=== PATIENT | female | born 1945 | race Two or more races ===

== ENCOUNTER 2016-12-25 19:38 | Inpatient (IN) | payer OTHER ==
--- NOTE | 2016-12-25 21:10 | PDOC ---
History of Present Illness - General Chief Complaint: Constipation Stated Complaint: DIZZINESS Time Seen by Provider: 12/25/16 20:27 History Source: Patient, Family, Group Leader [employer] Used Exam Limitations: Language Barrier - History of Present Illness Initial Comments: 12/25/16 21:05 71yo Female patient w/ significant PmHx: HLD, HTN, CAD, Colon CA, Constipation, Palpitations presents to ED c/o dizziness, weakness, nausea, and " some chest pains." Patient states symptoms began over the past few days getting worse. She also c/o constipation but last BM: today and normal. Patient taking Pradaxa. She denies vomiting, diarrhea, rash, fever, back pain, abd pain, diff breathing or any other complaints at this time. PCP- Dr. Polanco. Presenting Symptoms: Chest Pain, Dizziness, Nausea Timing/Duration: reports: getting worse Severity/Quality: reports: mild. denies: moderate, severe, aching, burning, dull, ingestion, pressure, sharp, stabbing, tearing, tightness, other Location: reports: central. denies: substernal, epigastric, shoulder, back, abdomen, other Chest Pain Radiation: reports: shoulders Activities at Onset: reports: no specific activity. denies: none, exertion, emotional upset, rest, sleep, eating, working, sexual intercourse, other Past History - Travel Traveled outside of the country in the last 30 days: No Close contact w/someone who was outside of country & ill: No - Past Medical History Allergies/Adverse Reactions: Allergies Allergy/AdvReac Type Severity Reaction Status Date / Time No Known Allergies Allergy Verified 12/25/16 20:00 Home Medications: Ambulatory Orders Amlodipine Besylate [Norvasc -] 10 mg PO DAILY 12/25/16 Atenolol [Tenormin -] 25 mg PO DAILY 12/25/16 Atorvastatin Ca [Lipitor] 20 mg PO HS 12/25/16 Bisacodyl [Gentle Laxative] 5 mg PO PRN 12/25/16 Cholecalciferol (Vitamin D3) [Vitamin D3 -] 1,000 unit PO DAILY 12/25/16 Dabigatran Etexilate Mesylate [Pradaxa -] 75 mg PO BID 12/25/16 Lisinopril [Zestril] 40 mg PO DAILY 12/25/16 Omeprazole 20 mg PO DAILY 12/25/16 Tramadol HCl 50 mg PO PRN PRN 12/25/16 Cancer: Yes (Colon CA) Cardiac Disorders: Yes HTN: Yes Other medical history: Lumbar Stenosis - Surgical History Abdominal Surgery: Yes (Colon CA removal 2014) - Psycho/Social/Smoking Cessation Hx Anxiety: No Suicidal Ideation: No Smoking Status: No Smoking History: Never smoked Have you smoked in the past 12 months: No Number of Cigarettes Smoked Daily: 0 Information on smoking cessation initiated: No Hx Alcohol Use: No Drug/Substance Use Hx: No Substance Use Type: None Cardiac Specific PMH - Complaint Specific PMHX Abdominal Aortic Aneurysm: No Angina: No Cardiac Arrhythmia: No Cardiac Stent: No GERD: No Myocardial Infarction: No Pacemaker: No Pulmonary Embolus: No Valvular Heart Disease: No Peripheral Vascular Disease: No Review of Systems - Review of Systems Able to Perform ROS?: Yes Is the patient limited Hungarian proficient: No Constitutional: Yes: Weakness. No: Chills, Fever Cardiac (ROS): Yes: Chest Pain, Palpitations ABD/GI: Yes: Nausea : No: Hematuria Musculoskeletal: No: Back Pain Integumentary: No: Rash Neurological: Yes: Dizziness. No: Seizure All Other Systems: Reviewed and Negative *Physical Exam - Vital Signs Last Vital Signs Temp Pulse Resp BP Pulse Ox 98.4 F 78 18 116/67 98 12/26/16 00:56 12/25/16 19:53 12/25/16 19:53 12/25/16 19:53 12/25/16 19:53 - Physical Exam General Appearance: Yes: Nourished, Appropriately Dressed. No: Apparent Distress, Mild Distress, Moderate Distress, Severe Distress Neck: positive: Trachea midline, Supple. negative: Stridor, Lymphadenopathy (R) , Lymphadenopathy (L) Respiratory/Chest: positive: Lungs Clear, Normal Breath Sounds. negative: Chest Tender, Respiratory Distress, Accessory Muscle Use, Labored Respiration, Rapid RR, Rales, Rhonchi, Stridor, Wheezing Cardiovascular: positive: Regular Rhythm, Regular Rate. negative: Bradycardia, Tachycardia Gastrointestinal/Abdominal: positive: Soft, Increased Bowel Sounds. negative: Distended, Guarding, Rebound, Tenderness Musculoskeletal: positive: Normal Inspection. negative: CVA Tenderness, Vertebral Tenderness Extremity: positive: Normal Capillary Refill, Normal Inspection, Normal Range of Motion. 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, Fully Oriented, Alert, Normal Mood/ Affect, Normal Response, Motor Strength 10/26 ED Treatment Course - LABORATORY CBC & Chemistry Diagram: 12/25/16 21:00 12/25/16 21:00 - ADDITIONAL ORDERS Additional order review: Laboratory Results 12/25/16 12/25/16 12/25/16 23:10 23:05 22:56 INR PTT (Actin FS) Sodium Potassium Chloride Carbon Dioxide Anion Gap BUN Creatinine Creat Clearance w eGFR Random Glucose Calcium Total Bilirubin AST ALT Alkaline Phosphatase Creatine Kinase Troponin I B-Natriuretic Peptide Total Protein Albumin Total Amylase Lipase Urine Color Urine Appearance Urine pH Urine Protein Urine Glucose (UA) Urine Ketones Urine Blood Urine Nitrite Urine Bilirubin Urine Urobilinogen Ur Leukocyte Esterase Urine RBC Urine WBC Ur Epithelial Cells Stool Occult Blood Positive Blood Type O POSITIVE O POSITIVE Antibody Screen Negative Crossmatch See Detail 12/25/16 12/25/16 12/25/16 21:00 21:00 21:00 INR 0.96 PTT (Actin FS) 26.0 L Sodium 141 Potassium 4.5 Chloride 107 Carbon Dioxide 27 Anion Gap 7 L BUN 15 Creatinine 1.0 Creat Clearance w eGFR 54.50 Random Glucose 143 H Calcium 8.4 L Total Bilirubin 0.2 D AST 27 D ALT 32 D Alkaline Phosphatase 116 Creatine Kinase 57 Troponin I < 0.02 B-Natriuretic Peptide 276.14 H Total Protein 6.8 Albumin 3.4 Total Amylase 45 Lipase 167 Urine Color Colorless Urine Appearance Clear Urine pH 7.0 Urine Protein Negative Urine Glucose (UA) Negative Urine Ketones Negative Urine Blood 1+ H Urine Nitrite Negative Urine Bilirubin Negative Urine Urobilinogen Negative Ur Leukocyte Esterase Negative Urine RBC 3 Urine WBC 1 Ur Epithelial Cells Rare Stool Occult Blood Blood Type Antibody Screen Crossmatch 12/25/16 21:00 RBC 2.00 L D MCV 89.1 D MCHC 32.7 RDW 15.2 D MPV 7.6 Neutrophils % 65.5 D Lymphocytes % 23.9 D Monocytes % 9.4 Eosinophils % 0.8 Basophils % 0.4 - RADIOLOGY Radiology Studies Ordered: Category Date Time Status CHEST X-RAY PORTABLE* [RAD] Stat Radiology 12/25/16 20:47 Taken *DC/Admit/Observation/Transfer Diagnosis at time of Disposition: Anemia Qualifiers: Anemia type: unspecified type Qualified Code(s): D64.9 - Anemia, unspecified Gastrointestinal hemorrhage Qualifiers: GI bleed type/associated pathology: unspecified gastrointestinal hemorrhage type Qualified Code(s): K92.2 - Gastrointestinal hemorrhage, unspecified - Discharge Dispostion Condition at time of disposition: Fair Admit: Yes
[2016-12-25 21:13] LABS: BASOPHIL 0.4 % (0-2.0); EOSINOPHIL 0.8 % (0-4.5); MCH 29.1 pg (25.7-33.7); MCHC 32.7 g/dl (32.0-36.0); MEAN CELL VOLUME 89.1 fl (80-96); MEAN PLT VOLUME 7.6 fl (7.5-11.1); NEUTROPHILS 65.5 % (42.8-82.8); PLATELET COUNT 267 K/MM3 (134-434); RDW 15.2 % (11.6-15.6); WHITE BLOOD COUNT 12.1 K/mm3 (4.0-10.0)
[2016-12-25 21:26] LABS: INR 0.96 (0.82-1.09); PROTHROMBIN TIME (PATIENT) 10.6 SEC (9.98-11.88)
[2016-12-25 21:37] LABS: ALBUMIN 3.4 g/dl (3.4-5.0); AMYLASE 45 U/L (25-115); ANION GAP 7 (8-16); CALCIUM 8.4 mg/dL (8.5-10.1); CO2 27 mmol/L (21-32); GLUCOSE,RANDOM 143 mg/dL (74-106); SGOT/AST 27 U/L (15-37); SGPT/ALT 32 U/L (12-78)
[2016-12-25 21:41] LABS: ALK PHOS 116 U/L (45-117); BILIRUBIN,TOTAL 0.2 mg/dL (0.2-1.0); TOT PROT 6.8 g/dl (6.4-8.2); TROPONIN I < 0.02 ng/ml (0.00-0.05)
--- NOTE | 2016-12-25 23:10 | PDOC ---
*Physical Exam - Vital Signs Last Vital Signs Temp Pulse Resp BP Pulse Ox 97.9 F 78 18 116/67 98 12/25/16 19:53 12/25/16 19:53 12/25/16 19:53 12/25/16 19:53 12/25/16 19:53 ED Treatment Course - LABORATORY CBC & Chemistry Diagram: 12/26/16 15:50 12/26/16 15:50 - ADDITIONAL ORDERS Additional order review: Laboratory Results 12/25/16 12/25/16 21:00 21:00 INR 0.96 PTT (Actin FS) 26.0 L Sodium 141 Potassium 4.5 Chloride 107 Carbon Dioxide 27 Anion Gap 7 L BUN 15 Creatinine 1.0 Creat Clearance w eGFR 54.50 Random Glucose 143 H Calcium 8.4 L Total Bilirubin 0.2 D AST 27 D ALT 32 D Alkaline Phosphatase 116 Creatine Kinase 57 Troponin I < 0.02 B-Natriuretic Peptide 276.14 H Total Protein 6.8 Albumin 3.4 Total Amylase 45 Lipase 167 12/25/16 21:00 RBC 2.00 L D MCV 89.1 D MCHC 32.7 RDW 15.2 D MPV 7.6 Neutrophils % 65.5 D Lymphocytes % 23.9 D Monocytes % 9.4 Eosinophils % 0.8 Basophils % 0.4 Medical Decision Making - Medical Decision Making 12/25/16 23:10 agree with care from WANDER Casillas *DC/Admit/Observation/Transfer Diagnosis at time of Disposition: Anemia, GI bleed - Discharge Dispostion Condition at time of disposition: Fair
[2016-12-25 23:39] LABS: URINE APPEARANCE CLEAR; URINE BILIRUBIN NEGATIVE (NEGATIVE); URINE COLOR COLORLESS; URINE GLUCOSE (UA) NEGATIVE (NEGATIVE); URINE KETONE NEGATIVE (NEGATIVE); URINE LEUK ESTERASE NEGATIVE (NEGATIVE); URINE NITRITE NEGATIVE (NEGATIVE); URINE PROTEIN NEGATIVE (NEGATIVE); URINE UROBILINOGEN NEGATIVE E.U./dl (0.2-1.0)
[2016-12-25 23:40] LABS: URINE BLOOD 1+ (NEGATIVE)
[2016-12-25 23:44] LABS: URINE RBC 3 /hpf (0-3); URINE WBC 1 /hpf (3-5)
--- NOTE | 2016-12-26 01:05 | HP ---
CHIEF COMPLAINT: dizziness, weakness, nausea PCP: Meghan ChurchOfficial HISTORY OF PRESENT ILLNESS: This is a 71 year old female with a past medical history of HLD, HTN, CAD, colon CA, constipation who presented to the ED wit hdizziness, weakness, nausea , abdominal and chest discomfort since Saturday. Pt reports her stool has been soft and dark since . Pt states her abdominal pain occurs when she eats and radiates up into her chest and is relieved by belching. Pt also reports increased frequency of urination but no dysuria. Pt denies any vomiting, or overt hematochezia. ER course was notable for: (1) Hgb 5.8 (2) WBC 12.1 (3) stool + occ blood Recent Travel: pt denies PAST MEDICAL HISTORY: Hypertension Hyperlipidemia CAD cardiomegaly "hole in her heart" colon CA chronic constipation lumbar stenosis PAST SURGICAL HISTORY: colon resection 02/2015 @ [facility] Social History: Smoking: pt denies Alcohol: pt denies Drugs: pt denies Family History: mother age 23, drowned father age 79, heart problems Allergies No Known Allergies Allergy (Verified 12/25/16 20:00) HOME MEDICATIONS: 3 Medication Instructions Recorded Amlodipine Besylate [Norvasc -] 10 mg PO DAILY 12/25/16 Atenolol [Tenormin -] 25 mg PO DAILY 12/25/16 Atorvastatin Ca [Lipitor] 20 mg PO HS 12/25/16 Bisacodyl [Gentle Laxative] 5 mg PO PRN 12/25/16 Cholecalciferol (Vitamin D3) 1,000 unit PO DAILY 12/25/16 [Vitamin D3 -] Dabigatran Etexilate Mesylate 75 mg PO BID 12/25/16 [Pradaxa -] Lisinopril [Zestril] 40 mg PO DAILY 12/25/16 Omeprazole 20 mg PO DAILY 12/25/16 Tramadol HCl 50 mg PO PRN PRN 12/25/16 REVIEW OF SYSTEMS CONSTITUTIONAL: Present: generalized weakness, malaise Absent: fever, chills, diaphoresis, loss of appetite, weight change HEENT: Absent: rhinorrhea, nasal congestion, throat pain, throat swelling, difficulty swallowing, mouth swelling, ear pain, eye pain, visual changes CARDIOVASCULAR: Present: chest pain Absent: syncope, palpitations, irregular heart rate, lightheadedness, peripheral edema RESPIRATORY: Absent: cough, shortness of breath, dyspnea with exertion, orthopnea, wheezing, stridor, hemoptysis GASTROINTESTINAL: Present: abdominal pain, nausea Absent: abdominal distension, vomiting, diarrhea, constipation, melena, hematochezia GENITOURINARY: Absent: dysuria, frequency, urgency, hesitancy, hematuria, flank pain, genital pain MUSCULOSKELETAL: Absent: myalgia, arthralgia, joint swelling, back pain, neck pain SKIN: Absent: rash, itching, pallor HEMATOLOGIC/IMMUNOLOGIC: Absent: easy bleeding, easy bruising, lymphadenopathy, frequent infections ENDOCRINE: Absent: unexplained weight gain, unexplained weight loss, heat intolerance, cold intolerance NEUROLOGIC: Absent: headache, focal weakness or paresthesias, dizziness, unsteady gait, seizure, mental status changes, bladder or bowel incontinence PSYCHIATRIC: Absent: anxiety, depression, suicidal or homicidal ideation, hallucinations. PHYSICAL EXAMINATION Vital Signs - 24 hr 3 12/25/16 12/26/16 19:53 00:56 Temperature 97.9 F 98.4 F Pulse Rate 78 Respiratory 18 Rate Blood Pressure 116/67 O2 Sat by Pulse 98 Oximetry (%) GENERAL: Awake, alert, and fully oriented, in no acute distress. HEAD: Normal with no signs of trauma. EYES: Pupils equal, round and reactive to light, extraocular movements intact, sclera anicteric, conjunctiva pale. No lid lag. EARS, NOSE, THROAT: Ears normal, nares patent, oropharynx clear without exudates. Moist mucous membranes. NECK: Normal range of motion, supple without lymphadenopathy, JVD, or masses. LUNGS: Breath sounds equal, clear to auscultation bilaterally. No wheezes, and no crackles. No accessory muscle use. HEART: Regular rate and rhythm, normal S1 and S2 without rub or gallop. 2/6 murmur 2nd ICS LSB ABDOMEN: Soft, nontender, not distended, normoactive bowel sounds, no guarding, no rebound, no masses. No hepatomegaly or splenomegaly. MUSCULOSKELETAL: Normal range of motion at all joints. No bony deformities or tenderness. No CVA tenderness. UPPER EXTREMITIES: 2+ pulses, warm, well-perfused. No cyanosis. No clubbing. No peripheral edema. LOWER EXTREMITIES: 2+ pulses, warm, well-perfused. No calf tenderness. No peripheral edema. NEUROLOGICAL: Cranial nerves II-XII intact. Normal speech. Normal gait. PSYCHIATRIC: Cooperative. Good eye contact. Appropriate mood and affect. SKIN: Warm, dry, normal turgor, no rashes or lesions noted, normal capillary refill. Laboratory Results - last 24 hr 3 12/25/16 12/25/16 12/25/16 21:00 21:00 21:00 WBC RBC Hgb Hct MCV MCHC RDW Plt Count MPV Neutrophils % Lymphocytes % Monocytes % Eosinophils % Basophils % INR 0.96 PTT (Actin FS) 26.0 L Sodium 141 Potassium 4.5 Chloride 107 Carbon Dioxide 27 Anion Gap 7 L BUN 15 Creatinine 1.0 Creat Clearance w eGFR 54.50 Random Glucose 143 H Calcium 8.4 L Total Bilirubin 0.2 D AST 27 D ALT 32 D Alkaline Phosphatase 116 Creatine Kinase 57 Troponin I < 0.02 B-Natriuretic Peptide 276.14 H Total Protein 6.8 Albumin 3.4 Total Amylase 45 Lipase 167 Urine Color Colorless Urine Appearance Clear Urine pH 7.0 Urine Protein Negative Urine Glucose (UA) Negative Urine Ketones Negative Urine Blood 1+ H Urine Nitrite Negative Urine Bilirubin Negative Urine Urobilinogen Negative Ur Leukocyte Esterase Negative Urine RBC 3 Urine WBC 1 Ur Epithelial Cells Rare Stool Occult Blood Blood Type Antibody Screen Crossmatch 3 12/25/16 12/25/16 12/25/16 21:00 22:56 23:05 WBC 12.1 H RBC 2.00 L D Hgb 5.8 L* D Hct 17.8 L D MCV 89.1 D MCHC 32.7 RDW 15.2 D Plt Count 267 D MPV 7.6 Neutrophils % 65.5 D Lymphocytes % 23.9 D Monocytes % 9.4 Eosinophils % 0.8 Basophils % 0.4 INR PTT (Actin FS) Sodium Potassium Chloride Carbon Dioxide Anion Gap BUN Creatinine Creat Clearance w eGFR Random Glucose Calcium Total Bilirubin AST ALT Alkaline Phosphatase Creatine Kinase Troponin I B-Natriuretic Peptide Total Protein Albumin Total Amylase Lipase Urine Color Urine Appearance Urine pH Urine Protein Urine Glucose (UA) Urine Ketones Urine Blood Urine Nitrite Urine Bilirubin Urine Urobilinogen Ur Leukocyte Esterase Urine RBC Urine WBC Ur Epithelial Cells Stool Occult Blood Positive Blood Type O POSITIVE Antibody Screen Negative Crossmatch See Detail CXR: No obvious infiltrates or effusions, + cardiomegaly; final read pending. ECG: NSR, rate 70, QTC 473, T wave inversions v3-v5, flattening, lead 3, V2, V6 ASSESSMENT/PLAN: 71yF with PMH HTN, HLD, CAD, cardiomegaly, colon CA, lumbar stenosis presented to the ED with dizziness, weakness, nause and chest and abdominal pain since Saturday. Anemia secondary to GI bleed - 2u PRBC ordered - GI consult ordered - follow H/H - NPO except meds for possible EGD - protonix 40mg IV BID chest pain - atypical - unlikely to be cardiac but will trend troponins given anemia HTN - will hold home medications for now given GI bleed, risk of hypotension, restart if bp elevated Coronary disease/cardiomegaly/HLD - hold home pradaxa for now-unclear specific indication for same - cont lipitor Chronic constipation - hold bisacodyl for now PPX DVT - chemoprophylaxis deferred due to anemia and + stool guaiac GI - on protonix IV FEN - defer IVF- will be receiving volume with PRBC - Repeat BMP in am - NPO for now Dispo: Pt currently requires inpatient monitoring. Visit type - Emergency Visit Emergency Visit: Yes ED Registration Date: 12/25/16 Care time: The patient presented to the Emergency Department on the above date and was hospitalized for further evaluation of their emergent condition. - New Patient This patient is new to me today: Yes Date on this admission: 12/26/16 - Critical Care Critical Care patient: Yes Total Critical Care Time (in minutes): 45 Critical Care Statement: The care of this patient involved high complexity decision making to prevent further life threatening deterioration of the patient 's condition and/or to evalute & treat vital organ system(s) failure or risk of failure.
--- NOTE | 2016-12-26 02:14 | CONSULT ---
Consult Consult Specialty:: PULM / CCM Referred by:: Dr. Win Caruso Reason for Consultation:: GIB - History of Present Illness Chief Complaint: GIB History of Present Illness: Ms. Kayla Desai is a 71 y/o woman w/ HTN, CAD (on ASA), Cardiac valvular Dz (on Pradaxa), HLD, colon CA, chronic constipation, & back pain w/ sciatica ( on chronic Tramadol), [pt of Dr. Aster Polanco at [facility] at [address] [place] [address] in [place] ]. The pt presents to the ED on 12/25 c/o dizziness, weakness, nausea, abd, and chest discomfort X 5 Days. Pt states her abd pain occurs when she eats and radiates up into her chest and is relieved by belching. Pt denies any vomiting, or obvious hematochezia. The pt does endorse dark tarry stools. In Ed: + Guiac, Hgb < 6.0, Pt transferred to the ICU for GIB. - History Source History Provided By: Patient, Family Member, Medical Record Limitations to Obtaining History: Language Barrier - Past Medical History IMMIGRATION CONSULTANT: No: Alzheimer's, CVA, Dementia Cardio/Vascular: Yes: CAD, HTN, Hyperlipdemia, Murmur. No: AFIB, Aneurysm, [place] Pulmonary: No: Asthma, COPD, O2 Dependent Gastrointestinal: Yes: Cancer, Constipation. No: Gastritis, GERD, GI Bleed, Hemorrhoids, Peptic Ulcer Disease Renal/: No: Hematuria Reproductive: Yes: Postmenopausal Heme/Onc: Yes: Cancer. No: Bleeding Disorder Psych: No: Addictions, Anxiety, Bipolar, Depression Musculoskeletal: Yes: Chronic low back pain, Other (Sciatica) Rheumatology: No: Gout ENT: No: Allergic Rhinitis, Sinusitis Endocrine: No: Diabetes Mellitus - Past Surgical History Past Surgical History: Yes: None - Alcohol/Substance Use Hx Alcohol Use: No - Smoking History Smoking history: Never smoked Have you smoked in the past 12 months: No Aproximately how many cigarettes per day: 0 - Social History Usual Living Arrangement: Alone ADL: Independent History of Recent Travel: No Home Medications - Allergies Allergies/Adverse Reactions: Allergies Allergy/AdvReac Type Severity Reaction Status Date / Time No Known Allergies Allergy Verified 12/25/16 20:00 - Home Medications Home Medications: Ambulatory Orders Amlodipine Besylate [Norvasc -] 10 mg PO DAILY 12/25/16 Atenolol [Tenormin -] 25 mg PO DAILY 12/25/16 Atorvastatin Ca [Lipitor] 20 mg PO HS 12/25/16 Bisacodyl [Gentle Laxative] 5 mg PO PRN 12/25/16 Cholecalciferol (Vitamin D3) [Vitamin D3 -] 1,000 unit PO DAILY 12/25/16 Dabigatran Etexilate Mesylate [Pradaxa -] 75 mg PO BID 12/25/16 Lisinopril [Zestril] 40 mg PO DAILY 12/25/16 Omeprazole 20 mg PO DAILY 12/25/16 Tramadol HCl 50 mg PO PRN PRN 12/25/16 Family Disease History - Family Disease History Family Disease History: Other: Father (Heart Murmur) Review of Systems - Review of Systems Constitutional: reports: Weakness Eyes: reports: No Symptoms HENT: reports: No Symptoms Neck: reports: No Symptoms Cardiovascular: reports: Chest Pain Respiratory: reports: No Symptoms Gastrointestinal: reports: Abdominal Pain, Bloating, Constipation, Indigestion, Melena, Nausea. denies: Vomiting, Vomiting Blood Genitourinary: reports: No Symptoms Breasts: reports: No Symptoms Reported Musculoskeletal: reports: Back Pain Integumentary: reports: No Symptoms Neurological: reports: No Symptoms Endocrine: reports: No Symptoms Hematology/Lymphatic: reports: No Symptoms Psychiatric: reports: No Symptoms Pain Intensity: 4 Physical Exam Vital Signs: Vital Signs Temperature 98.3 F 12/26/16 01:55 Pulse Rate 69 12/26/16 01:55 Respiratory Rate 18 12/26/16 01:55 Blood Pressure 127/70 12/26/16 01:55 O2 Sat by Pulse Oximetry (%) 100 12/26/16 01:55 Intake & Output 12/23/16 12/24/16 12/25/16 12/26/16 23:59 23:59 23:59 23:59 Output Total 200 Balance -200 Weight 68.039 kg 80.286 kg Constitutional: Yes: Well Nourished, No Distress, Calm Eyes: Yes: WNL, Conjunctiva Clear, EOM Intact HENT: Yes: WNL, Atraumatic, Normocephalic Neck: Yes: WNL, Supple, Trachea Midline Cardiovascular: Yes: Regular Rate and Rhythm, Murmur Respiratory: Yes: WNL, Regular, CTA Bilaterally Gastrointestinal: Yes: WNL, Normal Bowel Sounds, Soft, Abdomen, Obese, Melena ...Rectal Exam: Yes: Deferred Renal/: Yes: WNL Breast(s): Yes: WNL Musculoskeletal: Yes: Back Pain Extremities: Yes: WNL Edema: No Peripheral Pulses WNL: Yes Integumentary: Yes: WNL Neurological: Yes: WNL, Alert, Oriented ...Motor Strength: WNL Psychiatric: Yes: WNL, Alert, Oriented Labs: CBC, BMP 12/25/16 21:00 12/25/16 21:00 Troponin, BNP 12/25/16 21:00 Troponin I < 0.02 B-Natriuretic Peptide 276.14 H Imaging - Results Chest X-ray: Image Reviewed (12/25: Clear (My Read).) EKG: Image Reviewed (12/25: RSR in the 70's w/o ectopy, normal axis, flipped Ts in the anterior, flattened in the lateral leads, but no ST or T-wave elevations , QTc = 473ms, No Acute Processes (My Read).) Problem List - Problems (1) GI bleed Code(s): K92.2 - GASTROINTESTINAL HEMORRHAGE, UNSPECIFIED Qualifiers: GI bleed type/associated pathology: unspecified gastrointestinal hemorrhage type Qualified Code(s): K92.2 - Gastrointestinal hemorrhage, unspecified (2) Hypertension Code(s): I10 - ESSENTIAL (PRIMARY) HYPERTENSION (3) Hyperlipidemia Code(s): E78.5 - HYPERLIPIDEMIA, UNSPECIFIED (4) Back pain Code(s): M54.9 - DORSALGIA, UNSPECIFIED (5) Coronary artery disease Code(s): I25.10 - ATHSCL HEART DISEASE OF [place] CORONARY ARTERY W/O ANG PCTRS (6) Valvular disease Code(s): I38 - ENDOCARDITIS, VALVE UNSPECIFIED Assessment/Plan ASSESS: This is a 71 y/o woman w/ HTN, CAD (on ASA), Cardiac valvular Dz (on Pradaxa), HLD, colon CA, chronic constipation, & back pain 2/2 lumbar stenosis w / sciatica (on chronic Tramadol) who presents now w/ a UGIB. PLAN: -NPO -Hold all AC (D/c ASA, D/c Pradaxa) -Hold all anit-HTN meds in the setting of a GIB & no Lisinopril in the ICU -Supp FiO2 for an SpO2 > 92% -Nebs prn -IS -HOB > 30 -Active T & S -Large bore IV access X2 -PRBCs X 2U -Trend CBC -Check Hep C (71 y/o) -PPI -GI for EGD -Stict I's & O's -Trend BUN/Cr -Replete e-lytes prn -TTE for whopping murmur (pt says she has had it for yrs) -CARDS Consult (especially RE: hold this AC & her valve dz) -Dilaudid for back pain (No NSAIDS) -S/p EGD d/c --> Floor for continued management. This patient has multiple comorbidities including but NOT limited to HTN, HLD, CAD, Cardiac valvular Dz, colon CA, chronic constipation, & back pain w/ sciatica. From a clinical and treatment plan perspective, considering this pts comorbidities as well as her NEW GIB, this pt has a high mortality rate and satisfies the definition of serious condition. Thus, this pt requires inpatient admission and based on these facts I do certify that this pt is expected to receive hospital services for at least 2 midnights. Thank You for this interesting Consult Dayron Tillman, ACNP-BC [id number] PULM /CCM Critical Care Time/MDM Note Total Critical Care Time: 39 Critical Care Statement: The care of this patient involved high complexity decision making to prevent further life threatening deterioration of the patient 's condition and/or to evalute & treat vital organ system(s) failure or risk of failure.
[2016-12-26 02:52] VITALS: BMI 30.4
[2016-12-26 04:52] LABS: TROPONIN I < 0.02 ng/ml (0.00-0.05)
[2016-12-26] MEDS ORDERED: traMADol HCL 50 MG TABLET PO PRN ×2 (05:07→10:54)
[2016-12-26] MEDS ORDERED: PANTOPRAZOLE SODIUM 80 MG in SODIUM CHLORIDE 100 ML IVPB SCH (07:30)
--- NOTE | 2016-12-26 07:36 | PN ---
Physical Exam: SUBJECTIVE: 71 year old female past medical history HTN, CAD (on aspirin), valvular heart dz , HLD, Colon CA, constipation, back pain on tramadol is on HD#2 s/p GI bleed with hgb 5. Pt was transfused 2 units this morning, repeat hgb 9.0. Currently denies chest pain, abdominal pain, n/v/d. denies hematochezia (notes brown stool ). OBJECTIVE: Vital Signs Period Temp Pulse Resp BP Sys/Person Pulse Ox Last 24 Hr 98.0 F-98.3 F 58-69 15-18 99-129/51-73 100-100 GENERAL: The patient is awake, alert, and fully oriented, in no acute distress. HEAD: Normal with no signs of trauma. EYES: PERRL, extraocular movements intact, sclera anicteric, conjunctiva clear. No ptosis. ENT: Ears normal, nares patent, oropharynx clear without exudates, moist mucous membranes. NECK: Trachea midline, full range of motion, supple. LUNGS: Breath sounds equal, clear to auscultation bilaterally, no wheezes, no crackles, no accessory muscle use. HEART: Regular rate and rhythm, normal S1/S2, systolic murmur noted 2nd ICS on R , no rub or gallop. ABDOMEN: Soft, mildly tender LUQ, nondistended, normoactive bowel sounds, no guarding, no rebound, no hepatosplenomegaly, no masses. EXTREMITIES: 2+ pulses, warm, well-perfused, no edema. NEUROLOGICAL: Cranial nerves II through XII grossly intact. Normal speech, gait not observed. PSYCH: Normal mood, normal affect. SKIN: Warm, dry, normal turgor, no rashes or lesions noted CBC,CMP WBC 10.7 K/mm3 (4.0-10.0) H 12/26/16 07:05 RBC 2.98 M/mm3 (3.60-5.2) L D 12/26/16 07:05 Hgb 9.0 GM/dL (10.7-15.3) L D 12/26/16 07:05 Hct 26.4 % (32.4-45.2) L D 12/26/16 07:05 MCV 88.8 fl (80-96) 12/26/16 07:05 MCHC 33.9 g/dl (32.0-36.0) 12/26/16 07:05 RDW 14.5 % (11.6-15.6) 12/26/16 07:05 Plt Count 244 K/MM3 (134-434) 12/26/16 07:05 MPV 7.8 fl (7.5-11.1) 12/26/16 07:05 Neutrophils % 62.3 % (42.8-82.8) 12/26/16 07:05 Lymphocytes % 24.9 % (8-40) 12/26/16 07:05 Monocytes % 10.6 % (3.8-10.2) H 12/26/16 07:05 Eosinophils % 1.7 % (0-4.5) D 12/26/16 07:05 Basophils % 0.5 % (0-2.0) 12/26/16 07:05 Sodium 146 mmol/L (136-145) H 12/26/16 07:05 Potassium 4.0 mmol/L (3.5-5.1) 12/26/16 07:05 Chloride 112 mmol/L (98-107) H 12/26/16 07:05 Carbon Dioxide 27 mmol/L (21-32) 12/26/16 07:05 Anion Gap 7 (8-16) L 12/26/16 07:05 BUN 11 mg/dL (7-18) D 12/26/16 07:05 Creatinine 0.9 mg/dL (0.55-1.02) 12/26/16 07:05 Creat Clearance w eGFR 54.50 (>60) 12/25/16 21:00 Random Glucose 117 mg/dL (74-106) H 12/26/16 07:05 Calcium 8.6 mg/dL (8.5-10.1) 12/26/16 07:05 Phosphorus 3.5 mg/dL (2.5-4.9) 12/26/16 07:05 Magnesium 2.3 mg/dL (1.8-2.4) 12/26/16 07:05 Total Bilirubin 0.2 mg/dL (0.2-1.0) D 12/25/16 21:00 AST 27 U/L (15-37) D 12/25/16 21:00 ALT 32 U/L (12-78) D 12/25/16 21:00 Alkaline Phosphatase 116 U/L (45-117) 12/25/16 21:00 Creatine Kinase 59 IU/L (26-192) 12/26/16 10:00 Troponin I < 0.02 ng/ml (0.00-0.05) 12/26/16 10:00 B-Natriuretic Peptide 276.14 pg/ml (5-125) H 12/25/16 21:00 Total Protein 6.8 g/dl (6.4-8.2) 12/25/16 21:00 Albumin 3.4 g/dl (3.4-5.0) 12/25/16 21:00 Total Amylase 45 U/L (25-115) 12/25/16 21:00 Lipase 167 U/L (73-393) 12/25/16 21:00 Laboratory Results - last 24 hr 12/26/16 04:15 Creatine Kinase 56 Troponin I < 0.02 Active Medications Generic Name Dose Route Start Last Admin Trade Name Freq PRN Reason Stop Dose Admin Atorvastatin Calcium 20 mg 12/26/16 22:00 Lipitor - PO HS JOSE Chlorhexidine Gluconate 1 applic 12/26/16 22:00 Hibiclens For Decolonization - TP HS JOSE Cholecalciferol 1,000 unit 12/26/16 10:00 Vitamin D3 - PO DAILY JOSE Pantoprazole Sodium 80 mg/ 100 mls @ 10 mls/hr 12/26/16 07:30 Sodium Chloride IVPB Q10H JOSE 8 MG/HR Mupirocin 1 applic 12/26/16 10:00 Bactroban Ointment (For Decolonization) - NS 12/31/16 09:59 BID JOSE Tramadol HCl 50 mg 12/26/16 05:07 Ultram - PO Q6H PRN PAIN Imaging: CXR: Cardiomegaly ASSESSMENT/PLAN: 71 year old female with anemia secondary to GI bleed. Patient's Hgb stabilized at 9.0 after 2 units PRBCs, up from 5.8 before transfusion. Patient is resting comfortably, denies n/v, chest pain, abdominal pain. GI: -keep NPO -Trend CBC (4pm) -continue protonix 80mg IV -trend BUN/Cre (4pm) -No NSAIDs -transfuse if Hgb < 7 -f/u GI consult Cardio: -f/u TTE for systolic murmur -monitor H&H (4pm) -continue atorvastatin 20mg PO FEN: Patient is mildly hypernatremic (Na 146) -continue D5-(1/2)NS IV fluids at 75ml/hr until sodium stabilizes Dispo: -transfer to med/surg -patient's last colonoscopy was 2 years ago, she is due for repeat colonoscopy Problem List - Problems (1) Anemia Code(s): D64.9 - ANEMIA, UNSPECIFIED Qualifiers: Anemia type: unspecified type Qualified Code(s): D64.9 - Anemia, unspecified (2) GI bleed Code(s): K92.2 - GASTROINTESTINAL HEMORRHAGE, UNSPECIFIED Qualifiers: GI bleed type/associated pathology: unspecified gastrointestinal hemorrhage type Qualified Code(s): K92.2 - Gastrointestinal hemorrhage, unspecified Visit type - Emergency Visit Emergency Visit: No - New Patient This patient is new to me today: Yes Date on this admission: 12/26/16 - Critical Care Critical Care patient: Yes Total Critical Care Time (in minutes): 120 Critical Care Statement: The care of this patient involved high complexity decision making to prevent further life threatening deterioration of the patient 's condition and/or to evalute & treat vital organ system(s) failure or risk of failure.
[2016-12-26 07:45] LABS: BASOPHIL 0.5 % (0-2.0); EOSINOPHIL 1.7 % (0-4.5); MCH 30.1 pg (25.7-33.7); MCHC 33.9 g/dl (32.0-36.0); MEAN CELL VOLUME 88.8 fl (80-96); MEAN PLT VOLUME 7.8 fl (7.5-11.1); NEUTROPHILS 62.3 % (42.8-82.8); PLATELET COUNT 244 K/MM3 (134-434); RDW 14.5 % (11.6-15.6); WHITE BLOOD COUNT 10.7 K/mm3 (4.0-10.0)
[2016-12-26 07:49] LABS: ANION GAP 7 (8-16); CALCIUM 8.6 mg/dL (8.5-10.1); CO2 27 mmol/L (21-32); CREATININE 0.9 mg/dL (0.55-1.02); GLUCOSE,RANDOM 117 mg/dL (74-106); MAGNESIUM 2.3 mg/dL (1.8-2.4); PHOSPHOROUS 3.5 mg/dL (2.5-4.9)
[2016-12-26] MEDS ORDERED: PT OWN MED DRAWER 7, Y5N ONE (09:11)
[2016-12-26] MEDS ORDERED: MUPIROCIN 2% TOPICAL OINTMENT FOR DECOLONIZATION NS SCH ×2 (10:00)
[2016-12-26] MEDS ORDERED: CHOLECALCIFEROL (VITAMIN D3) 400 UNIT TABLET (FP) PO SCH (10:00)
[2016-12-26] MEDS ORDERED: PANTOPRAZOLE SODIUM 100 ML IVPB SCH (10:00)
--- NOTE | 2016-12-26 10:42 | EKG ---
Test Reason : Blood Pressure : / mmHG Vent. Rate : 070 BPM Atrial Rate : 070 BPM P-R Int : 188 ms QRS Dur : 098 ms QT Int : 438 ms P-R-T Axes : 051 018 030 degrees QTc Int : 473 ms NORMAL SINUS RHYTHM NONSPECIFIC T WAVE ABNORMALITY PROLONGED QT ABNORMAL ECG WHEN COMPARED WITH ECG OF 26-JAN-2016 17:39, ST NO LONGER DEPRESSED IN INFERIOR LEADS Confirmed by LUCIAN STOKES, SEEMA ([id number]) on 12/26/2016 10:42:10 AM Referred By: Confirmed By:SEEMA EPSTEIN MD
[2016-12-26 10:58] LABS: TROPONIN I < 0.02 ng/ml (0.00-0.05)
[2016-12-26] MEDS ORDERED: SODIUM CHLORIDE 0.9% 1000 ML INFUS.BAG IV SCH (11:45)
--- NOTE | 2016-12-26 11:53 | PN ---
Teaching Attending Note Name of Resident: Ridge Pierce ATTENDING PHYSICIAN STATEMENT I saw and evaluated the patient. I reviewed the resident's note and discussed the case with the resident. I agree with the resident's findings and plan as documented. SUBJECTIVE:currently asymptomatic. states her dizzyness and weakness resolved once they started the blood tranfusions. had BM this AM which was light brown ( witnessed by RN). denies Cp, SOB,fever, chills, BRBPR, denies NSAID or steroid use. last colonoscopy was 2014. was scheduled for colonoscopy next month. was started on NOAC to prevent clots after colon resection OBJECTIVE: Last Vital Signs Temp Pulse Resp BP Pulse Ox 98.0 F 67 18 123/64 100 12/26/16 10:00 12/26/16 08:00 12/26/16 08:00 12/26/16 08:00 12/26/16 07:39 General NAD CV S1 S2 +murmur no rub Lungs CTA B/L no wheezing/rales/rhonchi Abdomen soft NT/ND no rebound or guarding Extremities no pedal edema ASSESSMENT AND PLAN: 71yo F wtih PMH dyslpidemia, HTN, CAD, colon cancer presented to the ER with dizzyness and weakness and found to be anemic 1. Symptomatic anemia likely due to GI bleed- MICU monitoring, +FOBT. s/p 2 units PRBC with good response. will trend Hgb Q12H. switched to PPI ggt. awaiting GI consult will likely require EGD for evaluation. NPO and IVF. pain and antiemeitc 2. CP- likely due to anemia. cardiac enzymes neg x3. echo pending. no events on cardiac monitoring. cont for now 3. Leukocytosis-likley reactive. afebrile. no signs of infection. will hold abx for now 4. dyslipidemia- re-start statin when no longer npo 5. DVT ppx- SCD 6. MICU monitoring. The care of this patient involved high complexity decision making to prevent further life threatening deterioration of the patient's condition and/or to evalute & treat vital organ system(s) failure or risk of failure. 45 minutes critical care time
[2016-12-26] MEDS ORDERED: SODIUM CHLORIDE 1,000 ML IV SCH (12:15)
[2016-12-26] MEDS: DEXTROSE 5%-0.45% SALINE 1,000 ML IV SCH (12:36)
--- NOTE | 2016-12-26 16:22 | PN ---
Physical Exam: SUBJECTIVE: Patient seen and examined Patient had no acute events overnight. Was given 2 units PRBC. States she felt better after the 2 units. She had 1 nonbloody bowel movement this morning. Her last colonoscopy was in 2014 and she has not had one since. Denies any chest pain, shortness of breath, nausea, vomiting, diarrhea, constipation. OBJECTIVE: Vital Signs Period Temp Pulse Resp BP Sys/Person Pulse Ox Last 24 Hr 97.9 F-98.3 F 58-69 15-18 99-129/51-73 100-100 GENERAL: The patient is awake, alert, and fully oriented, in no acute distress. HEAD: Normal with no signs of trauma. EYES: extraocular movements intact, sclera anicteric, conjunctiva clear. ENT: oropharynx clear without exudates, moist mucous membranes. NECK: Trachea midline, full range of motion, LUNGS: Breath sounds equal, clear to auscultation bilaterally, no wheezes, no crackles, no accessory muscle use. HEART: Regular rate and rhythm, S1, S2, +2/6 murmur over Left 2nd intercostal space, No rub or gallop. ABDOMEN: Soft, nontender, nondistended, normoactive bowel sounds, no guarding, no rebound, no hepatosplenomegaly, no masses. EXTREMITIES:Lower extremities:no edema. NEUROLOGICAL: Normal speech, gait not observed. PSYCH: Normal mood, normal affect. Laboratory Results - last 24 hr 12/26/16 12/26/16 12/26/16 04:15 07:05 07:05 WBC 10.7 H RBC 2.98 L D Hgb 9.0 L D Hct 26.4 L D MCV 88.8 MCHC 33.9 RDW 14.5 Plt Count 244 MPV 7.8 Neutrophils % 62.3 Lymphocytes % 24.9 Monocytes % 10.6 H Eosinophils % 1.7 D Basophils % 0.5 Sodium 146 H Potassium 4.0 Chloride 112 H Carbon Dioxide 27 Anion Gap 7 L BUN 11 D Creatinine 0.9 Random Glucose 117 H Calcium 8.6 Phosphorus 3.5 Magnesium 2.3 Creatine Kinase 56 Troponin I < 0.02 12/26/16 10:00 WBC RBC Hgb Hct MCV MCHC RDW Plt Count MPV Neutrophils % Lymphocytes % Monocytes % Eosinophils % Basophils % Sodium Potassium Chloride Carbon Dioxide Anion Gap BUN Creatinine Random Glucose Calcium Phosphorus Magnesium Creatine Kinase 59 Troponin I < 0.02 Active Medications Generic Name Dose Route Start Last Admin Trade Name Freq PRN Reason Stop Dose Admin Atorvastatin Calcium 20 mg 12/26/16 22:00 Lipitor - PO HS [facility] Chlorhexidine Gluconate 1 applic 12/26/16 22:00 Hibiclens For Decolonization - TP HS [facility] Cholecalciferol 1,000 unit 12/27/16 10:00 Vitamin D3 - PO DAILY JOSE Pantoprazole Sodium 80 mg/ 100 mls @ 10 mls/hr 12/26/16 17:30 Sodium Chloride IVPB Q10H JOSE 8 MG/HR Dextrose/Sodium Chloride 1,000 mls @ 75 mls/hr 12/26/16 12:30 12/26/16 12:36 D5-1/2ns - IV 75 mls/hr ASDIR JOSE Administration Mupirocin 1 applic 12/26/16 22:00 Bactroban Ointment (For Decolonization) - NS 12/31/16 09:59 BID JOSE Tramadol HCl 50 mg 12/26/16 10:54 Ultram - PO Q6H PRN PAIN ASSESSMENT/PLAN: 71 year old female with PMH of HTN, HLD, CAD, Cardiomegaly, and colon cancer s/ p resection in 2014 presented to the ED with dizziness, weakness, nausea, and chest/abdominal pain admitted for anemia secondary to GI bleed and atypical chest pain. 1. Anemia secondary to GI bleed -Given 2 units PRBC -Hgb has improved from 5.8 to 9 -Stool positive for occult blood Plan: -GI consulted for possible EGD -Follow Hgb /Hct -Switch protonix 40mg IV BID to protonix drip -NPO except meds for possible EGD -Contine IV 1/2 NS @ 75 ml/hr -Continue tramadol 50 mg PO Q6h PRN for pain 2. Chest pain -Atypical -Trops negative x3 -Not likely cardiac in nature -Possibly due to anemia -Echo done Plan: -F/u on echo report -Continue cardiac monitoring 3. HTN -Controlled Plan: -Holding meds due to risk for hypotension with GI bleed 4. Leukocytosis -12.1 on admission -Currently trending down with last WBC 10.7 -Likely reactive -Patient has been afebrile Plan: -Continue to monitor for fevers 5. Hyperlipidemia Plan: -Continue home lipitor 20 mg PO HS 6. PPX: Plan: -SCDs b/l Visit type - Emergency Visit Emergency Visit: No - New Patient This patient is new to me today: Yes Date on this admission: 12/26/16 - Critical Care Critical Care patient: No
[2016-12-26 16:54] LABS: BASOPHIL 0.5 % (0-2.0); EOSINOPHIL 1.6 % (0-4.5); MCH 29.2 pg (25.7-33.7); MCHC 32.7 g/dl (32.0-36.0); MEAN CELL VOLUME 89.3 fl (80-96); MEAN PLT VOLUME 9.2 fl (7.5-11.1); NEUTROPHILS 60.4 % (42.8-82.8); RDW 14.8 % (11.6-15.6); WHITE BLOOD COUNT 11.9 K/mm3 (4.0-10.0)
[2016-12-26] MEDS: PANTOPRAZOLE SODIUM 80 MG in SODIUM CHLORIDE 100 ML IVPB SCH (16:57)
[2016-12-26 17:22] LABS: ANION GAP 11 (8-16); CALCIUM 8.6 mg/dL (8.5-10.1); CO2 26 mmol/L (21-32); CREATININE 0.8 mg/dL (0.55-1.02); GLUCOSE,RANDOM 117 mg/dL (74-106)
--- NOTE | 2016-12-26 19:28 | CON.GI ---
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 No: AFIB, Aneurysm, CA Pulmonary: No: Asthma, COPD, O2 Dependent Gastrointestinal: Yes: Cancer, Constipation. No: Gastritis, GERD, GI Bleed, Hemorrhoids, Peptic Ulcer Disease Renal/: No: Hematuria Psych: No: Addictions, Anxiety, Bipolar, Depression Musculoskeletal: Yes: Chronic low back pain, Other (Sciatica) Rheumatology: No: Gout ENT: No: Allergic Rhinitis, Sinusitis Endocrine: No: Diabetes Mellitus - Past Surgical History Past Surgical History: Yes: None - Alcohol/Substance Use Hx Alcohol Use: No - Smoking History Smoking history: Never smoked Have you smoked in the past 12 months: No Aproximately how many cigarettes per day: 0 - Social History Usual Living Arrangement: Alone ADL: Independent History of Recent Travel: No Home Medications - Allergies Allergies/Adverse Reactions: Allergies Allergy/AdvReac Type Severity Reaction Status Date / Time No Known Allergies Allergy Verified 12/25/16 20:00 - Home Medications Home Medications: Ambulatory Orders Amlodipine Besylate [Norvasc -] 10 mg PO DAILY 12/25/16 Atenolol [Tenormin -] 25 mg PO DAILY 12/25/16 Atorvastatin Ca [Lipitor] 20 mg PO HS 12/25/16 Bisacodyl [Gentle Laxative] 5 mg PO PRN 12/25/16 Cholecalciferol (Vitamin D3) [Vitamin D3 -] 1,000 unit PO DAILY 12/25/16 Dabigatran Etexilate Mesylate [Pradaxa -] 75 mg PO BID 12/25/16 Lisinopril [Zestril] 40 mg PO DAILY 12/25/16 Omeprazole 20 mg PO DAILY 12/25/16 Tramadol HCl 50 mg PO PRN PRN 12/25/16 Family Disease History - Family Disease History Family Disease History: Other: Father (Heart Murmur) Physical Exam-GI Vital Signs: Vital Signs Temperature 98.1 F 12/26/16 18:00 Pulse Rate 68 12/26/16 18:00 Respiratory Rate 21 12/26/16 18:00 Blood Pressure 130/81 12/26/16 18:00 O2 Sat by Pulse Oximetry (%) 100 12/26/16 07:39 Labs: CBC, BMP 12/26/16 15:50 12/26/16 15:50 INR, PTT INR 0.96 (0.82-1.09) 12/25/16 21:00
--- NOTE | 2016-12-26 19:52 | CON.GI ---
Consult - History of Present Illness History of Present Illness: Kayla Desai is a 71 y/o woman w/ HTN, CAD (on ASA), Cardiac valvular Dz ( on Pradaxa), HLD, colon CA, chronic constipation, & back pain w/ sciatica (on chronic Tramadol), [pt of Dr. Aster Polanco at [facility] at [address] [place] [address] in [place] ]. The pt presents to the ED on 12/25 c/o dizziness, weakness, nausea, abd, and chest discomfort X 5 Days. Pt states her abd pain occurs when she eats and radiates up into her chest and is relieved by belching. Pt denies any vomiting, or obvious hematochezia. The pt does endorse dark tarry stools. In Ed: + Guiac, Hgb < 6.0, Pt transferred to the ICU for GIB. Patient is poor informant. She denies having melena nor rectal bleeding. 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 No: AFIB, Aneurysm, MD Pulmonary: No: Asthma, COPD, O2 Dependent Gastrointestinal: Yes: Cancer, Constipation. No: Gastritis, GERD, GI Bleed, Hemorrhoids, Peptic Ulcer Disease Renal/: No: Hematuria Psych: No: Addictions, Anxiety, Bipolar, Depression Musculoskeletal: Yes: Chronic low back pain, Other (Sciatica) Rheumatology: No: Gout ENT: No: Allergic Rhinitis, Sinusitis Endocrine: No: Diabetes Mellitus - Past Surgical History Past Surgical History: Yes: None - Alcohol/Substance Use Hx Alcohol Use: No - Smoking History Smoking history: Never smoked Have you smoked in the past 12 months: No Aproximately how many cigarettes per day: 0 - Social History Usual Living Arrangement: Alone ADL: Independent History of Recent Travel: No Home Medications - Allergies Allergies/Adverse Reactions: Allergies Allergy/AdvReac Type Severity Reaction Status Date / Time No Known Allergies Allergy Verified 12/25/16 20:00 - Home Medications Home Medications: Ambulatory Orders Amlodipine Besylate [Norvasc -] 10 mg PO DAILY 12/25/16 Atenolol [Tenormin -] 25 mg PO DAILY 12/25/16 Atorvastatin Ca [Lipitor] 20 mg PO HS 12/25/16 Bisacodyl [Gentle Laxative] 5 mg PO PRN 12/25/16 Cholecalciferol (Vitamin D3) [Vitamin D3 -] 1,000 unit PO DAILY 12/25/16 Dabigatran Etexilate Mesylate [Pradaxa -] 75 mg PO BID 12/25/16 Lisinopril [Zestril] 40 mg PO DAILY 12/25/16 Omeprazole 20 mg PO DAILY 12/25/16 Tramadol HCl 50 mg PO PRN PRN 12/25/16 Family Disease History - Family Disease History Family Disease History: Other: Father (Heart Murmur) Physical Exam-GI Vital Signs: Vital Signs Temperature 98.1 F 12/26/16 18:00 Pulse Rate 68 12/26/16 18:00 Respiratory Rate 21 12/26/16 18:00 Blood Pressure 130/81 12/26/16 18:00 O2 Sat by Pulse Oximetry (%) 100 12/26/16 07:39 Constitutional: Yes: Well Nourished Eyes: Yes: Conjunctiva Clear HENT: Yes: Atraumatic Neck: Yes: Supple Cardiovascular: Yes: Regular Rate and Rhythm Respiratory: Yes: CTA Bilaterally ...Palpate: Yes: Soft. No: Firm/Rigid, Guarding, Hepatomegaly, Mass, Pulsatile Mass, Splenomegaly, Tenderness, Tenderness, Epigastium Labs: CBC, BMP 12/26/16 15:50 12/26/16 15:50 INR, PTT INR 0.96 (0.82-1.09) 12/25/16 21:00 Problem List - Problems (1) GI bleed Assessment/Plan: on Pradaxa and Aspirin, had dark stool for 1 week R>for EGD if negative will need colonoscopy Code(s): K92.2 - GASTROINTESTINAL HEMORRHAGE, UNSPECIFIED Qualifiers: GI bleed type/associated pathology: unspecified gastrointestinal hemorrhage type Qualified Code(s): K92.2 - Gastrointestinal hemorrhage, unspecified (2) History of colon cancer Assessment/Plan: cea level consider catscan if not done recently Code(s): Z85.038 - PERSONAL HISTORY OF MALIGNANT NEOPLASM OF LARGE INTESTINE
[2016-12-26 20:32] LABS: PLATELET COUNT 211 K/MM3 (134-434); PLATELET ESTIMATE ADEQUATE (NORMAL)
[2016-12-26] MEDS: ATORVASTATIN CA 20 MG TABLET (FP) PO SCH (21:46)
[2016-12-26] MEDS: MUPIROCIN 2% TOPICAL OINTMENT FOR DECOLONIZATION NS SCH (21:49)
[2016-12-26] MEDS ORDERED: CHLORHEXIDINE GLUCONATE 4% CLEANSER FOR DECOLONIZATION TP SCH ×2 (22:00)
[2016-12-26] MEDS: CHLORHEXIDINE GLUCONATE 4% CLEANSER FOR DECOLONIZATION TP SCH (22:00)
[2016-12-26] MEDS ORDERED: ATORVASTATIN CA 20 MG TABLET (FP) PO SCH (22:00)
[2016-12-27 00:32] LABS: BASOPHIL 0.5 % (0-2.0); EOSINOPHIL 1.2 % (0-4.5); MCH 29.3 pg (25.7-33.7); MCHC 33.4 g/dl (32.0-36.0); MEAN CELL VOLUME 87.7 fl (80-96); MEAN PLT VOLUME 7.5 fl (7.5-11.1); NEUTROPHILS 64.8 % (42.8-82.8); PLATELET COUNT 286 K/MM3 (134-434); RDW 14.3 % (11.6-15.6); WHITE BLOOD COUNT 9.9 K/mm3 (4.0-10.0)
[2016-12-27] MEDS: DEXTROSE 5%-0.45% SALINE 1,000 ML IV SCH ×2 (01:59→21:12)
[2016-12-27] MEDS: PANTOPRAZOLE SODIUM 80 MG in SODIUM CHLORIDE 100 ML IVPB SCH (02:30)
[2016-12-27 06:53] LABS: BASOPHIL 0.6 % (0-2.0); MCH 29.7 pg (25.7-33.7); MEAN CELL VOLUME 87.4 fl (80-96); MEAN PLT VOLUME 7.3 fl (7.5-11.1); NEUTROPHILS 55.9 % (42.8-82.8); PLATELET COUNT 292 K/MM3 (134-434); RDW 14.7 % (11.6-15.6); WHITE BLOOD COUNT 10.3 K/mm3 (4.0-10.0)
[2016-12-27 07:20] LABS: ANION GAP 10 (8-16); CALCIUM 8.5 mg/dL (8.5-10.1); CO2 27 mmol/L (21-32); GLUCOSE,RANDOM 135 mg/dL (74-106)
[2016-12-27] MEDS ORDERED: PROPOFOL 20 ML ONE ×2 (08:37)
--- NOTE | 2016-12-27 09:12 | PN ---
Progress Note (short form) - Note Progress Note: Addendum: S/P EGD with finding of ulcerated gastric mass in the gastric body 50 cm past the incisors. Multiple biopsies taken. Possibilities include adenoca, GIST Await biopsy results CT chest, abdomen, pelvis ordered with IV contrast Onc consult pending results Clear liquid diet
[2016-12-27] MEDS ORDERED: PT OWN MED DRAWER 7, Y5N ONE (10:14)
[2016-12-27] MEDS: CHOLECALCIFEROL (VITAMIN D3) 1,000 UNIT TABLET (FP) PO SCH (10:18)
[2016-12-27] MEDS: MUPIROCIN 2% TOPICAL OINTMENT FOR DECOLONIZATION NS SCH ×2 (10:21→21:11)
--- NOTE | 2016-12-27 12:20 | PN ---
Physical Exam: SUBJECTIVE: Patient seen and examined No acute events overnight. Patient had 1 nonbloody BM overnight. No complaints this morning OBJECTIVE: Vital Signs Period Temp Pulse Resp BP Sys/Person Pulse Ox Last 24 Hr 97.8 F-98.3 F 61-72 9-21 107-134/54-81 98-100 GENERAL: The patient is awake, alert, and fully oriented, in no acute distress. HEAD: Normal with no signs of trauma. EYES: extraocular movements intact, sclera anicteric, conjunctiva clear. ENT: oropharynx clear without exudates, moist mucous membranes. NECK: Trachea midline, full range of motion, LUNGS: Breath sounds equal, clear to auscultation bilaterally, no wheezes, no crackles, no accessory muscle use. HEART: Regular rate and rhythm, S1, S2, +2/6 murmur blowing systolic over right 2nd intercostal space, No rub or gallop. ABDOMEN: Soft, nontender, nondistended, normoactive bowel sounds, no guarding, no rebound, no hepatosplenomegaly, no masses. EXTREMITIES:Lower extremities:no edema. NEUROLOGICAL: Normal speech, gait not observed. PSYCH: Normal mood, normal affect. Laboratory Results - last 24 hr 12/26/16 12/26/16 12/27/16 15:50 15:50 00:15 WBC 11.9 H 9.9 RBC 3.05 L 3.21 L Hgb 8.9 L 9.4 L Hct 27.2 L 28.2 L MCV 89.3 87.7 MCHC 32.7 33.4 RDW 14.8 14.3 Plt Count 211 286 D MPV 9.2 D 7.5 D Neutrophils % 60.4 64.8 Lymphocytes % 26.8 21.8 Monocytes % 10.7 H 11.7 H Eosinophils % 1.6 1.2 Basophils % 0.5 0.5 Differential Comment Slide scanned Platelet Estimate Adequate Platelet Comment No clumping noted Sodium 144 Potassium 3.9 Chloride 107 Carbon Dioxide 26 Anion Gap 11 BUN 8 D Creatinine 0.8 Random Glucose 117 H Calcium 8.6 12/27/16 12/27/16 05:50 05:50 WBC 10.3 H RBC 3.18 L Hgb 9.5 L Hct 27.8 L MCV 87.4 MCHC 34.0 RDW 14.7 Plt Count 292 MPV 7.3 L Neutrophils % 55.9 Lymphocytes % 29.4 D Monocytes % 12.1 H Eosinophils % 2.0 Basophils % 0.6 Differential Comment Platelet Estimate Platelet Comment Sodium 142 Potassium 3.7 Chloride 105 Carbon Dioxide 27 Anion Gap 10 BUN 9 Creatinine 1.0 D Random Glucose 135 H Calcium 8.5 Active Medications Generic Name Dose Route Start Last Admin Trade Name Freq PRN Reason Stop Dose Admin Atorvastatin Calcium 20 mg 12/26/16 22:00 12/26/16 21:46 Lipitor - PO 20 mg HS JOSE Administration Chlorhexidine Gluconate 1 applic 12/26/16 22:00 12/26/16 22:00 Hibiclens For Decolonization - TP Not Given HS JOSE Cholecalciferol 1,000 unit 12/27/16 10:00 12/27/16 10:18 Vitamin D3 - PO 1,000 unit DAILY JOSE Administration Dextrose/Sodium Chloride 1,000 mls @ 75 mls/hr 12/26/16 12:30 12/27/16 01:59 D5-1/2ns - IV 75 mls/hr ASDIR JOSE Administration Mupirocin 1 applic 12/26/16 22:00 12/27/16 10:21 Bactroban Ointment (For Decolonization) - NS 12/31/16 09:59 Not Given BID JOSE Pantoprazole Sodium 40 mg 12/28/16 10:00 Protonix - PO DAILY JOSE Tramadol HCl 50 mg 12/26/16 10:54 12/26/16 21:46 Ultram - PO 50 mg Q6H PRN Administration PAIN ASSESSMENT/PLAN: 71 year old female with PMH of HTN, HLD, CAD, Cardiomegaly, and colon cancer s/ p resection in 2014 presented to the ED with dizziness, weakness, nausea, and chest/abdominal pain admitted for anemia secondary to GI bleed and atypical chest pain. 1. 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 Chest pain -Atypical -Trops negative x3 -Not likely cardiac in nature -Possibly due to anemia -Echo shows mild pulmonary, mitral, and tricuspid regurg Plan: -Monitor for any chest pain 3. HTN -Controlled Plan: -Holding meds due to risk for hypotension with GI bleed 4. Leukocytosis -12.1 on admission -Currently trending down with last WBC 10.3 -Likely reactive -Patient has been afebrile Plan: -Continue to monitor for fevers 5. Hyperlipidemia Plan: -Continue home lipitor 20 mg PO HS 6. PPX: Plan: -SCDs b/l Visit type - Emergency Visit Emergency Visit: No - New Patient This patient is new to me today: No - Critical Care Critical Care patient: No
--- NOTE | 2016-12-27 13:47 | PN ---
Teaching Attending Note Name of Resident: Ridge Pierce ATTENDING PHYSICIAN STATEMENT I saw and evaluated the patient. I reviewed the resident's note and discussed the case with the resident. I agree with the resident's findings and plan as documented. SUBJECTIVE: No complaints. OBJECTIVE: Vital Signs Period Temp Pulse Resp BP Sys/Person Pulse Ox Last 24 Hr 97.8 F-98.3 F 61-72 9-21 107-134/54-81 98-100 HEART: S1S2, RRR LUNGS: Clear ABDOMEN: Soft, non-tender, non-distended, normal BS EXTREMITIES: No edema ASSESSMENT AND PLAN: This is a 71-year-old woman with a history of hyperlpidemia, HTN, CAD, colon cancer who presented to the ER with dizziness and weakness. 1. Symptomatic anemia secondary to acute GI blood loss from gastric mass - Transfused 2 units PRBCs - Hemoglobin stable - EGD today showed 7 cm x 8 cm circumferential gastric mass - CT chest/abd/pelvis ordered - Continue Protonix 2. Chest pain - Resolved 3. Leukocytosis, likley reactive 4. Hyperlipidemia - Continue Lipitor 5. CAD 6. HTN
[2016-12-27] MEDS: CHLORHEXIDINE GLUCONATE 4% CLEANSER FOR DECOLONIZATION TP SCH (21:11)
[2016-12-27] MEDS: ATORVASTATIN CA 20 MG TABLET (FP) PO SCH (21:12)
[2016-12-28 06:52] LABS: BASOPHIL 0.5 % (0-2.0); EOSINOPHIL 2.1 % (0-4.5); MCH 29.7 pg (25.7-33.7); MCHC 34.1 g/dl (32.0-36.0); MEAN CELL VOLUME 87.1 fl (80-96); MEAN PLT VOLUME 7.3 fl (7.5-11.1); NEUTROPHILS 52.2 % (42.8-82.8); PLATELET COUNT 314 K/MM3 (134-434); RDW 14.5 % (11.6-15.6); WHITE BLOOD COUNT 10.3 K/mm3 (4.0-10.0)
[2016-12-28 07:18] LABS: ANION GAP 8 (8-16); CALCIUM 8.7 mg/dL (8.5-10.1); CO2 27 mmol/L (21-32); GLUCOSE,RANDOM 126 mg/dL (74-106)
[2016-12-28] MEDS: DEXTROSE 5%-0.45% SALINE 1,000 ML IV SCH (09:30)
[2016-12-28] MEDS: CHOLECALCIFEROL (VITAMIN D3) 1,000 UNIT TABLET (FP) PO SCH (09:31)
[2016-12-28] MEDS ORDERED: PANTOPRAZOLE 40 MG TABLET (FP) PO SCH (10:00)
--- NOTE | 2016-12-28 13:19 | PN ---
Teaching Attending Note Name of Resident: Ridge Pierce ATTENDING PHYSICIAN STATEMENT I saw and evaluated the patient. I reviewed the resident's note and discussed the case with the resident. I agree with the resident's findings and plan as documented. SUBJECTIVE: No complaints. OBJECTIVE: Vital Signs Period Temp Pulse Resp BP Sys/Person Pulse Ox Last 24 Hr 98 F-98.5 F 62-79 20-20 110-137/61-79 100 HEART: S1S2, RRR LUNGS: Clear ABDOMEN: Soft, non-tender, non-distended, normal BS EXTREMITIES: No edema ASSESSMENT AND PLAN: This is a 71-year-old woman with a history of hyperlpidemia, HTN, CAD, colon cancer who presented to the ER with dizziness and weakness. 1. Symptomatic anemia secondary to acute GI blood loss from gastric mass - Transfused 2 units PRBCs - Hemoglobin is stable - EGD showed 7 cm x 8 cm circumferential gastric mass - CT chest/abd/pelvis shows gastric wall mass with no adenopathy or metastatic disease - Continue Protonix - Continue to hold Pradaxa - Follow-up pathology 2. Chest pain - Resolved 3. Leukocytosis, likley reactive 4. Hyperlipidemia - Continue Lipitor 5. CAD 6. HTN 7. Disposition - Ok for discharge
--- NOTE | 2016-12-28 15:40 | PATH ---
Surgical Pathology Report Patient Name: TOBIAS SARKAR [facility]. Rec. #: [id number] /Age/Gender: 1945 (Age: 71) / F Account: [id number] Location: [address] [place] [address]/[facility] Taken: 12/27/2016 Received: 12/27/2016 Reported: 12/28/2016 Physicians: Dea Kendall M.D. Specimen(s) Received BX GASTRIC BODY MASS @ 50 CM. Clinical History GI bleed Ulcerated gastric body mass Final Diagnosis STOMACH, BODY, ULCERATED MASS AT 50 CM, BIOPSY: GASTRIC OXYNTIC MUCOSA WITH MODERATE CHRONIC GASTRITIS AND FOCAL SURFACE EROSION. NO DYSPLASIA/ADENOMA OR CARCINOMA IDENTIFIED IN THE EXAMINED MATERIAL. IMMUNOSTAIN FOR H. PYLORI IS NEGATIVE FOR ORGANISMS. Comment: The endoscopic impression of an ulcerated gastric body mass is noted. Multiple levels were examined. The biopsy shows gastric mucosa with evidence of nearby area of ulceration. However, the dysplasia/adenoma/carcinoma of malignancy is identified in the examined material. No submucosal tissue is present. Endoscopic correlations and follow up are suggested. Electronically Signed Yogesh Chaudhary M.D. Gross Description Received in formalin, labeled "biopsy gastric body mass" are 4 roberts, irregular portions of soft tissue ranging from 0.5-0.7 cm. in greatest dimension. The specimens are submitted in toto in one cassette. 12/27/201612/27/2016
--- NOTE | 2016-12-28 16:32 | DS ---
Physical Exam: SUBJECTIVE: Patient seen and examined No acute events overnight. No complaints this morning. OBJECTIVE: Vital Signs Period Temp Pulse Resp BP Sys/Person Pulse Ox Last 24 Hr 97 F-98.5 F 62-90 16-20 110-131/58-79 100 PHYSICAL EXAM GENERAL: The patient is awake, alert, and fully oriented, in no acute distress. HEAD: Normal with no signs of trauma. EYES: Extraocular movements intact, sclera anicteric, conjunctiva clear. ENT: Oropharynx clear without exudates, moist mucous membranes. NECK: Trachea midline, full range of motion, LUNGS: Breath sounds equal, clear to auscultation bilaterally, no wheezes, no crackles, no accessory muscle use. HEART: Regular rate and rhythm, S1, S2, +2/6 blowing systolic murmur over right and left 2nd intercostal space, No rub or gallop. ABDOMEN: Soft, nontender, nondistended, normoactive bowel sounds, no guarding, no rebound, no hepatosplenomegaly, no masses. EXTREMITIES: Lower extremities:no edema. NEUROLOGICAL: Normal speech, gait not observed. PSYCH: Normal mood, normal affect. LABS Laboratory Results Laboratory Tests 12/25/16 12/25/16 12/25/16 21:00 21:00 22:56 WBC 12.1 H RBC 2.00 L D Hgb 5.8 L* D Hct 17.8 L D Plt Count 267 D Sodium 141 Potassium 4.5 Chloride 107 Carbon Dioxide 27 Anion Gap 7 L BUN 15 Creatinine 1.0 Random Glucose Calcium 8.4 L Stool Occult Blood Positive 12/26/16 12/26/16 12/27/16 07:05 15:50 00:15 WBC RBC Hgb 9.0 L D 8.9 L 9.4 L Hct 26.4 L D 27.2 L 28.2 L Plt Count Sodium Potassium Chloride Carbon Dioxide Anion Gap BUN Creatinine Random Glucose Calcium Stool Occult Blood 12/27/16 12/28/16 12/28/16 05:50 06:00 06:00 WBC 10.3 H RBC 3.39 L Hgb 9.5 L 10.1 L Hct 27.8 L 29.5 L Plt Count 314 Sodium 139 Potassium 4.0 Chloride 104 Carbon Dioxide 27 Anion Gap 8 BUN 8 Creatinine 1.0 Random Glucose 126 H Calcium 8.7 Stool Occult Blood Imaging: "IMPRESSION: CT imaging completed demonstrating a gastric wall mass with no CT evidence of metastatic disease in the chest, abdomen and pelvis. No CT evidence of perigastric or peripancreatic adenopathy, no signs of hepatic or adrenal metastasis with no ascites and no implants identified in the omentum or mesentery. No pericecal iliac adenopathy identified" HOSPITAL COURSE: Date of Admission:12/26/16 Date of Discharge: 12/28/16 71 year old female with a history of colon cancer s/p resection in 2014 and multiple medical comorbidities admitted for symptomatic anemia. She was found to have a hemoglobin of 5.8 on admission and stool + for occult blood. Patient received 2 units PRBC and responded well. Hemoglobin has remained stable. GI performed an EGD, which showed an ulcerated mass in the gastric body. Biopsies were taken. CT chest/abd/pelvis was performed, which showed no evidence of metastasis. Minutes to complete discharge: 30 Discharge Summary Reason For Visit: ANEMIA GI BLEED Current Active Problems Anemia (Acute) GI bleed (Acute) Back pain (Chronic) Coronary artery disease (Chronic) History of colon cancer (Chronic) Hyperlipidemia (Chronic) Hypertension (Chronic) Valvular disease (Chronic) Condition: Improved - Instructions Diet, Activity, Other Instructions: You were in the hospital because your blood counts were low likely due to a mass in your stomach. A piece of the mass was taken to be tested. We do not have the results yet, but your health educator can request the results from the hospital when they are finalized. You can call medical records at [phone] Follow up with your health educator in 1 week. We have provided you with a referral to Dr. Ortiz, the health educator who saw you in the hospital. Also, Follow up with your oncologist in 1 week. We have provided you with a referral to Dr. Armendariz (oncologist) Continue your home medications -Bisacodyl 5 mg tablets as needed -Lipitor 20 mg 1 tablet by mouth at night -Norvasc 10 mg 1 tablet by mouth daily -Omeprazole 20 mg 1 tablet by mouth daily -Atenolol 25 mg 1 tablet by mouth daily -Tramadol 50 mg 1 tablet by mouth as needed -Vitamin D3 400 units 2.5 tablets by mouth daily -Lisinopril 40 mg 1 tablet by mouth daily Stop taking: -Pradaxa 75 mg If you have any chest pain, shortness of breath, or any new symptoms, please come back to the hospital immediately. Referrals: Marshall Ortiz MD [Staff Physician] - Maycol Armendariz MD [Staff Physician] - Ruchi Johnson MD [Primary Care Provider] - Disposition: HOME - Home Medications Comprehensive Discharge Medication List: Ambulatory Orders Amlodipine Besylate [Norvasc -] 10 mg PO DAILY 12/25/16 Atenolol [Tenormin -] 25 mg PO DAILY 12/25/16 Atorvastatin Ca [Lipitor] 20 mg PO HS 12/25/16 Bisacodyl [Gentle Laxative] 5 mg PO PRN 12/25/16 Cholecalciferol (Vitamin D3) [Vitamin D -] 1,000 unit PO DAILY 12/25/16 Lisinopril [Zestril] 40 mg PO DAILY 12/25/16 Omeprazole 20 mg PO DAILY 12/25/16 Tramadol HCl 50 mg PO PRN PRN 12/25/16 This patient is new to me today: No Emergency Visit: No Critical Care patient: No - Discharge Referral Referred to [facility] No
[2016-12-28 17:32] VITALS: BP 116/58; PULSE 90; TEMP 98
--- NOTE | 2017-01-02 11:59 | EKG ---
Test Reason : Blood Pressure : / mmHG Vent. Rate : 068 BPM Atrial Rate : 068 BPM P-R Int : 176 ms QRS Dur : 088 ms QT Int : 454 ms P-R-T Axes : 034 -12 000 degrees QTc Int : 482 ms NORMAL SINUS RHYTHM NONSPECIFIC T WAVE ABNORMALITY PROLONGED QT ABNORMAL ECG WHEN COMPARED WITH ECG OF 25-DEC-2016 20:23, NO SIGNIFICANT CHANGE WAS FOUND Confirmed by LUCIAN STOKES, SEEMA ([id number]) on 01/02/2017 11:59:12 AM Referred By: Confirmed By:SEEMA EPSTEIN MD
== END 2016-12-28 18:16 | disposition home or self-care (01) | DRG 378 ==
LOC: JER 19:38 → JERBED 12-26 01:09 → JICU 12-26 01:56 → J6S 12-26 17:24
PROVIDERS: ADMIT Internal Medicine; ATTEND Internal Medicine
PROC: 30233N1 Transfusion of Nonautologous Red Blood Cells into Peripheral Vein, Percutaneous Approach (ICD-10-PCS; 2016-12-26)
PROC: 0DB68ZX Excision of Stomach, Via Natural or Artificial Opening Endoscopic, Diagnostic (ICD-10-PCS; principal; 2016-12-27 08:45)
DX: K92.2 Gastrointestinal hemorrhage, unspecified (principal); D62 Acute posthemorrhagic anemia; I25.10 Atherosclerotic heart disease of native coronary artery without angina pectoris; I10 Essential (primary) hypertension; E78.5 Hyperlipidemia, unspecified; I51.7 Cardiomegaly; M48.06 Spinal stenosis, lumbar region; Z85.038 Personal history of other malignant neoplasm of large intestine; R07.89 Other chest pain; K59.09 Other constipation; M54.30 Sciatica, unspecified side; D72.829 Elevated white blood cell count, unspecified; K31.9 Disease of stomach and duodenum, unspecified
CPT/HCPCS: 36415; 36430; 71010-TC; 71260-TC; 74178-TC; 80048; 80053; 81003; 81015; 82150; 82272; 82550; 83690; 83735; 83880; 84100; 84484; 85025; 85610; 85730; 86850; 86900; 86901; 86922; 87086; 88305-TC; 93005; 93010; 93306-TC; 94010; 99285-25; P9038; P9058; Q9967

== ENCOUNTER 2017-08-27 09:51 | Day surgery (SDC) | payer OTHER ==
[2017-08-26 14:08] VITALS: BMI 28.0
[2017-08-27] MEDS ORDERED: LIDOCAINE VISCOUS 2% ORAL/TOP 20 ML UNIT-DOSE CUP ONE (11:07)
[2017-08-27 11:48] VITALS: TEMP 98
[2017-08-27 13:03] VITALS: BP 118/72; PULSE 80
--- NOTE | 2017-08-28 12:15 | PATH ---
Surgical Pathology Report Patient Name: TOBIAS SARKAR [facility]. Rec. #: [id number] /Age/Gender: 1945 (Age: 72) / F Account: [id number] Location: [facility]END[facility]COPY Taken: 08/27/2017 Received: 08/27/2017 Reported: 08/28/2017 Physicians: Wilbert Holland M.D. Specimen(s) Received BX GASTRIC MASS Clinical History Preoperative diagnosis: Anemia, weight loss, gastric tumor Postoperative diagnosis: Gastric mass Final Diagnosis Gastric mass, biopsy: GASTRIC OXYNTIC MUCOSA WITH MODERATE CHRONIC GASTRITIS AND ACUTE PURULENT EXUDATE CONSISTENT WITH ULCER BASE. NO DYSPLASIA OR CARCINOMA IDENTIFIED IN THIS MATERIAL. Immunohistochemical STAIN FOR H. Pylori is negative. Comment: Endoscopic impression of a focally ulcerated gastric body mass is noted. Multiple levels were examined. The possibility of submucosal lesion cannot be excluded in this material. Suggest clinical and endoscopic correlation. Prior material is noted Electronically Signed Anneliese Baker M.D. Gross Description Received in formalin labeled "biopsy gastric mass," is a 1.0 x 0.8 x 0.2 cm aggregate of roberts soft tissue fragments. The formalin is filtered and the specimen is entirely submitted in one cassette. /08/27/2017 saudi08/27/2017
== END 2017-08-27 13:03 | disposition home or self-care (01) ==
LOC: JASU-ENDO 09:51
PROVIDERS: ATTEND Internal Medicine Gastroenterology
PROC: 0DB68ZX Excision of Stomach, Via Natural or Artificial Opening Endoscopic, Diagnostic (ICD-10-PCS; principal; 2017-08-27 13:30)
DX: K25.9 Gastric ulcer, unspecified as acute or chronic, without hemorrhage or perforation (principal); K92.1 Melena; K29.50 Unspecified chronic gastritis without bleeding; K31.89 Other diseases of stomach and duodenum; Z85.038 Personal history of other malignant neoplasm of large intestine; D64.9 Anemia, unspecified
CPT/HCPCS: 88305-TC; 88342-TC

== ENCOUNTER 2018-01-14 09:21 | Inpatient (IN) | payer OTHER ==
--- NOTE | 2018-01-14 09:31 | PDOC ---
History of Present Illness - General Chief Complaint: Pain Stated Complaint: GI BLEED Time Seen by Provider: 01/14/18 09:31 Past History - Past Medical History Allergies/Adverse Reactions: Allergies Allergy/AdvReac Type Severity Reaction Status Date / Time No Known Allergies Allergy Verified 01/14/18 09:29 Home Medications: Ambulatory Orders Atenolol [Tenormin -] 50 mg PO DAILY 12/25/16 Atorvastatin Ca [Lipitor] 20 mg PO DAILY 12/25/16 Ferrous Sulfate 325 mg PO BID 08/12/17 Gabapentin [Neurontin] 300 mg PO BID 08/12/17 Cholecalciferol (Vitamin D3) [Vitamin D3] 1,000 unit PO DAILY 08/26/17 Tramadol HCl [Tramadol HCl ER] 300 mg PO DAILY 08/26/17 Lisinopril [Prinivil -] 40 mg PO DAILY 08/27/17 Pantoprazole Sodium [Protonix -] 40 mg PO DAILY #60 tablet.ec 08/27/17 Bisacodyl [Dulcolax] 5 mg PO DAILY PRN 10/17/17 Anemia: Yes Cancer: Yes (Colon CA) Cardiac Disorders: Yes (CAD,HEARTMUR,AORTIC STENOSIS,AF) COPD: No GI Disorders: Yes (GASTRITIS,GERD) HTN: Yes Hypercholesterolemia: Yes - Surgical History Abdominal Surgery: Yes (Colon CA removal 2014) - Immunization History Immunization Up to Date: Yes - Suicide/Smoking/Psychosocial Hx Smoking Status: No Smoking History: Never smoked Have you smoked in the past 12 months: No Number of Cigarettes Smoked Daily: 0 Hx Alcohol Use: No Drug/Substance Use Hx: No Substance Use Type: None Hx Substance Use Treatment: No
[2018-01-14 09:32] VITALS: BMI 28.0
[2018-01-14 10:00] LABS: BASO % 0.2 % (0-2.0); EOS % 0.3 % (0-4.5); HEMATOCRIT 22.5 % (32.4-45.2); HEMOGLOBIN 7.5 GM/dL (10.7-15.3); LYMPH % 13.2 % (8-40); MCH 28.4 pg (25.7-33.7); MCHC 33.3 g/dl (32.0-36.0); MEAN CELL VOLUME 85.3 fl (80-96); MEAN PLT VOLUME 8.4 fl (7.5-11.1); MONO % 8.4 % (3.8-10.2); NEUT % 77.9 % (42.8-82.8); PLATELET COUNT 196 K/MM3 (134-434); RBC 2.64 M/mm3 (3.60-5.2); RDW 15.8 % (11.6-15.6); WHITE BLOOD COUNT 14.7 K/mm3 (4.0-10.0)
--- NOTE | 2018-01-14 10:00 | PDOC ---
History of Present Illness - General Chief Complaint: Pain Stated Complaint: GI BLEED Time Seen by Provider: 01/14/18 09:31 History Source: Patient - History of Present Illness Timing/Duration: other (this am) Severity: moderate Past History - Past Medical History Allergies/Adverse Reactions: Allergies Allergy/AdvReac Type Severity Reaction Status Date / Time No Known Allergies Allergy Verified 01/14/18 09:29 Home Medications: Ambulatory Orders RX: Atenolol [Tenormin -] 50 mg PO DAILY 12/25/16 RX: Atorvastatin Ca [Lipitor] 20 mg PO DAILY 12/25/16 RX: Ferrous Sulfate 325 mg PO BID 08/12/17 RX: Gabapentin [Neurontin] 300 mg PO BID 08/12/17 RX: Cholecalciferol (Vitamin D3) [Vitamin D3] 1,000 unit PO DAILY 08/26/17 RX: Tramadol HCl [Tramadol HCl ER] 300 mg PO DAILY 08/26/17 RX: Lisinopril [Prinivil -] 40 mg PO DAILY 08/27/17 RX: Pantoprazole Sodium [Protonix -] 40 mg PO DAILY #60 tablet.ec 08/27/17 Bisacodyl [Dulcolax] 5 mg PO DAILY PRN 10/17/17 Anemia: Yes Cancer: Yes (Colon CA) Cardiac Disorders: Yes (CAD,HEARTMUR,AORTIC STENOSIS,AF) COPD: No GI Disorders: Yes (GASTRITIS,GERD) HTN: Yes Hypercholesterolemia: Yes - Surgical History Abdominal Surgery: Yes (Colon CA removal 2014) - Immunization History Immunization Up to Date: Yes - Suicide/Smoking/Psychosocial Hx Smoking Status: No Smoking History: Never smoked Have you smoked in the past 12 months: No Number of Cigarettes Smoked Daily: 0 Hx Alcohol Use: No Drug/Substance Use Hx: No Substance Use Type: None Hx Substance Use Treatment: No Review of Systems - Review of Systems Constitutional: No: Chills, Fever Respiratory: No: Shortness of Breath Cardiac (ROS): Yes: Lightheadedness. No: Chest Pain, Palpitations, Syncope ABD/GI: Yes: Blood Streaked Bowels, Rectal Bleeding. No: Diarrhea, Nausea, Vomiting : No: Dysuria, Flank Pain, Hematuria Neurological: No: Headache *Physical Exam - Vital Signs Last Vital Signs Temp Pulse Resp BP Pulse Ox 97.8 F 75 20 96/71 100 01/14/18 09:29 01/14/18 09:29 01/14/18 09:29 01/14/18 09:29 01/14/18 09:29 - Physical Exam General Appearance: Yes: Appropriately Dressed. No: Apparent Distress HEENT: positive: Normal Voice Neck: positive: Supple Respiratory/Chest: positive: Lungs Clear, Normal Breath Sounds. negative: Respiratory Distress Cardiovascular: positive: Regular Rate, S1, S2 Gastrointestinal/Abdominal: positive: Normal Bowel Sounds, Soft. negative: Tender, Distended, Guarding, Rebound Rectal Exam: positive: other (dark brown stool, no gross melena, no BRB, guaiac +) Musculoskeletal: negative: CVA Tenderness Integumentary: positive: Dry, Warm Neurologic: positive: Fully Oriented, Alert, Normal Mood/Affect ED Treatment Course - LABORATORY CBC & Chemistry Diagram: 01/14/18 09:49 01/14/18 09:49 Medical Decision Making - Medical Decision Making 01/14/18 09:56 72-year-old female, poor historian with history of hypertension, CAD, colon cancer, status post resection 3 years ago, GI bleed, here with lightheadedness since this a.m., unclear if constant or intermittent with no exacerbating factors. Denies vertigo, SCHREIBER, visual changes, focal weakness, CP or SOB. Patient has a history of melena and reports that she continues to have intermittent black stools and ore recently have noticed ?BRBPR. No longer on iron pills. No abd pain, n/v. Of note, patient was admitted approximately 4 months ago for melena. Was found to have hemoglobin of 4 and was transfused. Per records, pt refused EGD then, but per records, was known to have gastric antral tumor on EGD 07/[address] Fernández. Has since transferred her care to Dr. Holland of GI. Based on records from last admission, pt was evaluated by Dr Bray of GI who recorded that he suspects pt's anemia may be 2 /2 known gastric tumor and had advised patient to return to [facility] for a biopsy of tumor as patient had her colon surgery at that facility. Unclear from patient now if she has since had biopsy done. Pt unclear if she is on asa at tis time See exam Dizziness w/ recurrent GIB Known gastric tumor on EGD 07/10, refused recent EGD during admission 2/18, ?bx of tumor Unclear if on asa Hypotensive in ED w/ benign abd and guaiac + dark brown stool -IVF -labs -GI c/s -anticipate admission 01/14/18 10:14 Hgb 7.5, was 8 when discharged 08/11 after admission for GIB and was 13, 10/09 when pt was seen in ED for elevated BP. Guaiac +. Rest of labs pending. Will transfuse especially given dizziness/hypotension. Will c/w GI and admit 01/14/18 11:23 Case d/w Dr Holland who agrees with transfusion. Will see as consult while inhouse. Pt now c/o severe L mid/LLQ pain. Wbc 14. Will control pain and get CT at this time. case d/w hospitalist and pt admitted at this time 01/14/18 12:48 CT w/ mildly increased in size of gastric mass compared to CT on 12/27/16. No e/o diverticulitis. No e/o metastatic disease. +gallstones without e/o cholecystitis *DC/Admit/Observation/Transfer Diagnosis at time of Disposition: Dizziness GIB (gastrointestinal bleeding) Qualifiers: GI bleed type/associated pathology: unspecified gastrointestinal hemorrhage type Qualified Code(s): K92.2 - Gastrointestinal hemorrhage, unspecified Anemia Qualifiers: Anemia type: unspecified type Qualified Code(s): D64.9 - Anemia, unspecified Hypotension Qualifiers: Hypotension type: unspecified hypotension type Qualified Code(s): I95.9 - Hypotension, unspecified - Discharge Dispostion Condition at time of disposition: Fair Decision to Admit order: Yes - Referrals - Patient Instructions - Post Discharge Activity
[2018-01-14] MEDS ORDERED: SODIUM CHLORIDE 500 ML IV STA ×2 (10:18→11:22)
[2018-01-14 10:19] LABS: INR 1.07 (0.82-1.09); PROTHROMBIN TIME (PATIENT) 12.1 SEC (9.7-13.0)
[2018-01-14 10:21] LABS: ACTIVATED PTT 22.1 SECONDS (25.2-36.5)
[2018-01-14 10:28] LABS: ANION GAP 8 (8-16); BLOOD UREA NITROGEN 50 mg/dL (7-18); CALCIUM 8.5 mg/dL (8.5-10.1); CHLORIDE 105 mmol/L (98-107); CO2 29 mmol/L (21-32); GLUCOSE,RANDOM 113 mg/dL (74-106); LIPASE 133 U/L (73-393); POTASSIUM 3.4 mmol/L (3.5-5.1); SGOT/AST 14 U/L (15-37); SGPT/ALT 27 U/L (12-78); SODIUM 142 mmol/L (136-145)
[2018-01-14 10:30] LABS: ALK PHOS 82 U/L (45-117); BILIRUBIN,TOTAL 0.4 mg/dL (0.2-1.0); TOT PROT 5.9 g/dl (6.4-8.2)
[2018-01-14] MEDS ORDERED: morphine CARPU-JECT 4 MG/1 ML DISP.SYRIN IVPUSH ONE (10:46)
[2018-01-14] MEDS ORDERED: MORPHINE SULFATE 2 MG/ML VIAL ONE (10:48)
--- NOTE | 2018-01-14 11:17 | HP ---
CHIEF COMPLAINT: PCP: HISTORY OF PRESENT ILLNESS: 72 year-old female with a PMH significant for HTN, HLD, CAD, gastric submucosal mass with ulceration (12/2016), and colon cancer. Patient is a poor historian. Told ED provider she felt lightheaded since this morning and denied abdominal pain. She told this provider she has had abdominal pain and bloody diarrhea since last night. She has Hgb 7.5. Gastric mass first diagnosed 12/2016. EGD done 08/27/17 showed 3 x 3cm mass on the greater curve of the stomach with a 1 x 0.5cm area of ulceration. Pathology was negative for dysplasia or carcinoma. Patient was transfused in 12/2016 and 07/2017. Discussed with Dr. Bray. Will transfuse 2 units. ER course was notable for: (1) Hgb 7.5, WBC 14.7 (2) K 3.4 (3) Stool occult positive Recent Travel: No PAST MEDICAL HISTORY: Hypertension Hyperlipidemia Coronary artery disease Gastric submucosal tumor with ulceration Colon cancer Chronic constipation PAST SURGICAL HISTORY: Colon resection (Jeremy 02/2015) Oopherectomy Social History: Smoking: denies Alcohol: denies Drugs: denies Family History: mother drowned age 23; father 79 heart problems Allergies No Known Allergies Allergy (Verified 01/14/18 09:29) HOME MEDICATIONS: Home Medications Medication Instructions Recorded Atenolol [Tenormin -] 50 mg PO DAILY 12/25/16 Atorvastatin Ca [Lipitor] 20 mg PO DAILY 12/25/16 Ferrous Sulfate 325 mg PO BID 08/12/17 Gabapentin [Neurontin] 300 mg PO BID 08/12/17 Cholecalciferol (Vitamin D3) 1,000 unit PO DAILY 08/26/17 [Vitamin D3] Tramadol HCl [Tramadol HCl ER] 300 mg PO DAILY 08/26/17 Lisinopril [Prinivil -] 40 mg PO DAILY 08/27/17 Pantoprazole Sodium [Protonix -] 40 mg PO DAILY #60 tablet.ec 08/27/17 Bisacodyl [Dulcolax] 5 mg PO DAILY PRN 10/17/17 REVIEW OF SYSTEMS CONSTITUTIONAL: Absent: fever, chills, diaphoresis, generalized weakness, malaise, loss of appetite, weight change HEENT: Absent: rhinorrhea, nasal congestion, throat pain, throat swelling, difficulty swallowing, mouth swelling, ear pain, eye pain, visual changes CARDIOVASCULAR: Absent: chest pain, syncope, palpitations, irregular heart rate, lightheadedness , peripheral edema RESPIRATORY: Absent: cough, shortness of breath, dyspnea with exertion, orthopnea, wheezing, stridor, hemoptysis GASTROINTESTINAL: +abdominal pain, melena, BRBPR Absent: abdominal pain, abdominal distension, nausea, vomiting, diarrhea, constipation, melena, hematochezia GENITOURINARY: Absent: dysuria, frequency, urgency, hesitancy, hematuria, flank pain, genital pain MUSCULOSKELETAL: Absent: myalgia, arthralgia, joint swelling, back pain, neck pain SKIN: Absent: rash, itching, pallor HEMATOLOGIC/IMMUNOLOGIC: Absent: easy bleeding, easy bruising, lymphadenopathy, frequent infections ENDOCRINE: Absent: unexplained weight gain, unexplained weight loss, heat intolerance, cold intolerance NEUROLOGIC: Absent: headache, focal weakness or paresthesias, dizziness, unsteady gait, seizure, mental status changes, bladder or bowel incontinence PSYCHIATRIC: Absent: anxiety, depression, suicidal or homicidal ideation, hallucinations. PHYSICAL EXAMINATION Vital Signs - 24 hr 01/14/18 01/14/18 09:29 10:13 Temperature 97.8 F Pulse Rate 75 Pulse Rate [ 74 Radial] Respiratory 20 20 Rate Blood Pressure 96/71 Blood Pressure 92/60 [Left Arm] O2 Sat by Pulse 100 100 Oximetry (%) GENERAL: Awake, alert, in no acute distress. HEAD: Normal with no signs of trauma. EYES: Pupils equal, round and reactive to light, sclera anicteric, conjunctiva clear. No lid lag. EARS, NOSE, THROAT: Ears normal, nares patent, oropharynx clear without exudates. Moist mucous membranes. NECK: Normal range of motion, supple without lymphadenopathy, JVD, or masses. LUNGS: Breath sounds equal, clear to auscultation bilaterally. No wheezes, and no crackles. No accessory muscle use. HEART: Regular rate and rhythm, normal S1 and S2 ABDOMEN: Soft, nontender, not distended MUSCULOSKELETAL: Normal range of motion at all joints. No bony deformities or tenderness. No CVA tenderness. UPPER EXTREMITIES: 2+ pulses, warm, well-perfused. No cyanosis. No clubbing. No peripheral edema. LOWER EXTREMITIES: 2+ pulses, warm, well-perfused. No calf tenderness. No peripheral edema. NEUROLOGICAL: Cranial nerves II-XII intact. Normal speech. Laboratory Results - last 24 hr 01/14/18 01/14/18 01/14/18 09:45 09:49 09:49 WBC 14.7 H RBC 2.64 L Hgb 7.5 L Hct 22.5 L D MCV 85.3 MCH 28.4 MCHC 33.3 RDW 15.8 H Plt Count 196 MPV 8.4 Absolute Neuts (auto) 11.4 Neutrophils % 77.9 D Lymphocytes % 13.2 D Monocytes % 8.4 Eosinophils % 0.3 Basophils % 0.2 Nucleated RBC % 0 PT with INR INR PTT (Actin FS) Sodium 142 Potassium 3.4 L Chloride 105 Carbon Dioxide 29 Anion Gap 8 BUN 50 H Creatinine 1.0 Creat Clearance w eGFR 54.35 Random Glucose 113 H Lactic Acid 1.5 Calcium 8.5 Total Bilirubin 0.4 AST 14 L ALT 27 Alkaline Phosphatase 82 Creatine Kinase Troponin I Total Protein 5.9 L Albumin 3.0 L Lipase 133 Stool Occult Blood Blood Type Antibody Screen 01/14/18 01/14/18 01/14/18 09:49 09:49 09:49 WBC RBC Hgb Hct MCV MCH MCHC RDW Plt Count MPV Absolute Neuts (auto) Neutrophils % Lymphocytes % Monocytes % Eosinophils % Basophils % Nucleated RBC % PT with INR 12.10 INR 1.07 PTT (Actin FS) 22.1 L Sodium Potassium Chloride Carbon Dioxide Anion Gap BUN Creatinine Creat Clearance w eGFR Random Glucose Lactic Acid Calcium Total Bilirubin AST ALT Alkaline Phosphatase Creatine Kinase 37 Troponin I < 0.02 Total Protein Albumin Lipase Stool Occult Blood Blood Type O POSITIVE Antibody Screen Negative 01/14/18 09:53 WBC RBC Hgb Hct MCV MCH MCHC RDW Plt Count MPV Absolute Neuts (auto) Neutrophils % Lymphocytes % Monocytes % Eosinophils % Basophils % Nucleated RBC % PT with INR INR PTT (Actin FS) Sodium Potassium Chloride Carbon Dioxide Anion Gap BUN Creatinine Creat Clearance w eGFR Random Glucose Lactic Acid Calcium Total Bilirubin AST ALT Alkaline Phosphatase Creatine Kinase Troponin I Total Protein Albumin Lipase Stool Occult Blood Positive Blood Type Antibody Screen ASSESSMENT/PLAN 72 year-old female with a PMH significant for HTN, HLD, CAD, gastric submucosal tumor with ulceration (12/2016), and colon cancer. Admitted with Hgb 7.5. Acute blood loss anemia secondary to gastric submucosal mass with ulceration Colon cancer s/p resection --transfuse 2U PRBC --GI following Hypertension --borderline hypotensive but maintaining MAP>65 --hold home chlorthalidone, lisinopril Hyperlipidemia --continue atorvastatin Coronary artery disease --not on ASA due to bleeding issues --hold lisinopril Hypokalemia --repleted with IV FEN Fluids: NS @ 50mL/hr Electrolytes: replete as indicated Nutrition: NPO DVT prophylaxis: mechanical only, oob, ambulation Dispo: continues to require inpatient care. Full code. Visit type - Emergency Visit Emergency Visit: Yes ED Registration Date: 01/14/18 Care time: The patient presented to the Emergency Department on the above date and was hospitalized for further evaluation of their emergent condition. - New Patient This patient is new to me today: Yes Date on this admission: 01/14/18 - Critical Care Critical Care patient: No Hospitalist Screening - Colonoscopy Questionnaire Colonoscopy Questionnaire: Colonoscopy Questionnaire - Patient: 50 - 75 years old and never had a screening colonoscopy: No History of colon or rectal polyps, or CA: Yes History of IBD, Crohn's disease or UC: No History of abdominal radiation therapy as a child: No - Relative: 1 with colon or rectal CA, or polyps at age 60 or younger: Unknown Colon or rectal CA diagnosed at age 45 or younger: Unknown Multiple relatives with colon or rectal CA: Unknown - Outcome: Screening Result: Positive Screen
[2018-01-14] MEDS ORDERED: ACETAMINOPHEN 1000 MG/100 ML VIAL (NON FORMULARY) IVPB ONE (11:22)
[2018-01-14] MEDS ORDERED: ACETAMINOPHEN INJECTION 100 ML IVPB ONE (11:36)
[2018-01-14] MEDS ORDERED: KCL 10 MEQ IVPB 30 MEQ/300 ML INFUS.BAG IVPB ONE (12:09)
[2018-01-14] MEDS: KCL 10 MEQ IVPB 10 MEQ/100 ML INFUS.BAG IVPB SCH ×3 (12:20→16:31)
--- NOTE | 2018-01-14 13:53 | EKG ---
Test Reason : Blood Pressure : / mmHG Vent. Rate : 073 BPM Atrial Rate : 073 BPM P-R Int : 178 ms QRS Dur : 088 ms QT Int : 420 ms P-R-T Axes : 045 -13 -10 degrees QTc Int : 462 ms NORMAL SINUS RHYTHM ABNORMAL ECG WHEN COMPARED WITH ECG OF 17-OCT-2017 01:50, NO SIGNIFICANT CHANGE WAS FOUND Confirmed by Richard Flores MD ([id number]) on 01/14/2018 1:53:41 PM Referred By: Confirmed By:Richard Flores MD
[2018-01-14 15:17] LABS: URINE APPEARANCE CLEAR; URINE BILIRUBIN NEGATIVE (<2.0 mg/dL); URINE COLOR COLORLESS; URINE GLUCOSE (UA) NEGATIVE (NEGATIVE); URINE KETONE NEGATIVE (NEGATIVE); URINE LEUK ESTERASE NEGATIVE (NEGATIVE); URINE NITRITE NEGATIVE (NEGATIVE); URINE PROTEIN NEGATIVE (NEGATIVE); URINE UROBILINOGEN NEGATIVE mg/dL (0.2-1.0)
[2018-01-14 16:18] VITALS: BP 110/66; PULSE 71; TEMP 98.2
--- NOTE | 2018-01-14 17:01 | CON.GI ---
Consult Consult Specialty:: Gastroenterology Referred by:: ZACHARIAH Monet Reason for Consultation:: GI bleeding - History of Present Illness Chief Complaint: Melena and hematemesis History of Present Illness: 72F presents with melena, orthostatic dizziness and abdominal pain and has a Hb 7.5. The patient is [place] speaking so the history was obtained using [employer] assistant production editor # [id number]. She has multiple admission for GI bleeding since 2012. She had colonoscopies with DR. Ortiz, Dr. Fernández and with me associated Dr Wilbert Holland at [facility] where perianal condylomata were ablated. IN she presented with Hb 9 and was found to have an ulcerated gastric mass on the greater curvature of the by Dr Fernández that appears to be of submucosal origin. She presented with bleeding again in 08/11 when she initially consented then refused an EGD with me. I advised her to go to [facility] on whom she expressed trust as she had her colon cancer resection there. She apparently never went there and instead saw Dr Holland who found the mass again on her last EGD on 09/16/17. Biopsies revealed an ulcer with a purulent base and chronic gastritis but no overt neoplasm or dysplasia. He advised surgery which she declined. She failed to arrange a followup EGD that Dr Holland scheduled. She has apparently been taking pantoprazole. She denies weight loss. - History Source History Provided By: Patient, Medical Record Limitations to Obtaining History: Language Barrier - Past Medical History Cardio/Vascular: Yes: AFIB, Aneurysm, CAD, HTN, Hyperlipdemia, [place] Gastrointestinal: Yes: Cancer (Colon cancer resection at [facility] in 2014.), Constipation, Gastritis, GERD, GI Bleed (Ulcerated gastric greated curvature submucosal mass with recurring transfusion requiring bleeds- refused surgery), Hemorrhoids, Other (bleeding perianal condylomata ablated) Hepatobiliary: Yes: Cholelithiasis, Other (fatty liver) Heme/Onc: Yes: Anemia Musculoskeletal: Yes: Chronic low back pain (lumbar disc disease), Other ( Sciatica) - Past Surgical History Past Surgical History: Yes: Colectomy (partial colectomy 2014 for cancer), Colonoscopy, Oopherectomy, Upper Endoscopy - Alcohol/Substance Use Hx Alcohol Use: No - Smoking History Smoking history: Never smoked Have you smoked in the past 12 months: No Aproximately how many cigarettes per day: 0 - Social History Usual Living Arrangement: Alone ADL: Independent Occupation: Retired cook Place of : Other ([place]) History of Recent Travel: No Home Medications - Allergies Allergies/Adverse Reactions: Allergies Allergy/AdvReac Type Severity Reaction Status Date / Time No Known Allergies Allergy Verified 01/14/18 09:29 - Home Medications Home Medications: Ambulatory Orders Atorvastatin Ca [Lipitor] 20 mg PO DAILY 12/25/16 Ferrous Sulfate 325 mg PO BID 08/12/17 Cholecalciferol (Vitamin D3) [Vitamin D3] 1,000 unit PO DAILY 08/26/17 Tramadol HCl [Tramadol HCl ER] 50 mg PO PRN PRN 08/26/17 Lisinopril [Prinivil -] 40 mg PO DAILY 08/27/17 Bisacodyl [Dulcolax] 5 mg PO PRN PRN 10/17/17 Chlorthalidone 25 mg PO DAILY 01/14/18 Pantoprazole Sodium [Protonix -] 50 mg PO DAILY 01/14/18 Family Disease History - Family Disease History Family Disease History: Other: Father (Heart Murmur, heart disease) Physical Exam-GI Vital Signs: Vital Signs Temperature 98.2 F 01/14/18 16:17 Pulse Rate 71 01/14/18 16:17 Respiratory Rate 16 01/14/18 16:17 Blood Pressure 110/66 01/14/18 16:17 O2 Sat by Pulse Oximetry (%) 97 01/14/18 14:38 CBC,CMP WBC 14.7 K/mm3 (4.0-10.0) H 01/14/18 09:49 RBC 2.64 M/mm3 (3.60-5.2) L 01/14/18 09:49 Hgb 7.5 GM/dL (10.7-15.3) L 01/14/18 09:49 Hct 22.5 % (32.4-45.2) L D 01/14/18 09:49 MCV 85.3 fl (80-96) 01/14/18 09:49 MCH 28.4 pg (25.7-33.7) 01/14/18 09:49 MCHC 33.3 g/dl (32.0-36.0) 01/14/18 09:49 RDW 15.8 % (11.6-15.6) H 01/14/18 09:49 Plt Count 196 K/MM3 (134-434) 01/14/18 09:49 MPV 8.4 fl (7.5-11.1) 01/14/18 09:49 Absolute Neuts (auto) 11.4 # 01/14/18 09:49 Neutrophils % 77.9 % (42.8-82.8) D 01/14/18 09:49 Lymphocytes % 13.2 % (8-40) D 01/14/18 09:49 Monocytes % 8.4 % (3.8-10.2) 01/14/18 09:49 Eosinophils % 0.3 % (0-4.5) 01/14/18 09:49 Basophils % 0.2 % (0-2.0) 01/14/18 09:49 Nucleated RBC % 0 % (0-0) 01/14/18 09:49 Sodium 142 mmol/L (136-145) 01/14/18 09:49 Potassium 3.4 mmol/L (3.5-5.1) L 01/14/18 09:49 Chloride 105 mmol/L (98-107) 01/14/18 09:49 Carbon Dioxide 29 mmol/L (21-32) 01/14/18 09:49 Anion Gap 8 (8-16) 01/14/18 09:49 BUN 50 mg/dL (7-18) H 01/14/18 09:49 Creatinine 1.0 mg/dL (0.55-1.02) 01/14/18 09:49 Creat Clearance w eGFR 54.35 (>60) 01/14/18 09:49 Random Glucose 113 mg/dL (74-106) H 01/14/18 09:49 Lactic Acid 1.5 mmol/L (0.0-2.0) 01/14/18 09:45 Calcium 8.5 mg/dL (8.5-10.1) 01/14/18 09:49 Total Bilirubin 0.4 mg/dL (0.2-1.0) 01/14/18 09:49 AST 14 U/L (15-37) L 01/14/18 09:49 ALT 27 U/L (12-78) 01/14/18 09:49 Alkaline Phosphatase 82 U/L (45-117) 01/14/18 09:49 Creatine Kinase 37 IU/L (26-192) 01/14/18 09:49 Troponin I < 0.02 ng/ml (0.00-0.05) 01/14/18 09:49 Total Protein 5.9 g/dl (6.4-8.2) L 01/14/18 09:49 Albumin 3.0 g/dl (3.4-5.0) L 01/14/18 09:49 Lipase 133 U/L (73-393) 01/14/18 09:49 Constitutional: Yes: No Distress Eyes: Yes: Conjunctiva Clear HENT: Yes: Normocephalic Neck: Yes: Supple Cardiovascular: Yes: Regular Rate and Rhythm, Murmur (2/6 early systolic murmur at the base 3/6 holosystolic blowing murmue at LLSB to apex) Respiratory: Yes: CTA Bilaterally Gastrointestinal Inspection: Yes: Scars (vertical supraumbilical and suprapubic incision with LUQ stabl wound scar) ...Auscultate: Yes: Normoactive Bowel Sounds ...Palpate: Yes: Soft, Other (nontender) ...Rectal Exam: Yes: Guaiac Positive (black and iron stained semisolid strongly guaiac positive stool small perianal pappules) Edema: No Neurological: Yes: Alert Labs: CBC, BMP 01/14/18 09:49 01/14/18 09:49 INR, PTT INR 1.07 (0.82-1.09) 01/14/18 09:49 Laboratory Tests 01/14/18 01/14/18 01/14/18 09:49 09:49 09:49 WBC 14.7 H Hgb 7.5 L MCV 85.3 PT with INR 12.10 BUN 50 H Creatinine 1.0 Albumin 3.0 L Imaging - Results Cat Scan: Report Reviewed (Dwight Griggs Name: TOBIAS SARKAR DEPARTMENT OF RADIOLOGY Phys: Norman Melton : 1945 Age: 72 Sex: F [facility] Acct: [id number] Loc: [address] Exam Date: 01/14/18 Status: [place] [address] Unit Number: [id number] EXAM#: TYPE/EXAM : RESULT: CT/ABDOMEN PELVIS CT WITH CONTR Abdomen and pelvis CT ( with contrast) Clinical information given: left lower quadrant pain Multiplanar imaging was performed following the intravenous administration of nonionic contrast. As requested enteric contrast was not administered. No evidence of pneumoperitoneum, free intraperitoneal fluid, abscess or bowel obstruction. There is no CT evidence of acute diverticulitis or colitis. The patient appears to be status post right hemicolectomy as on a previous CT study of 12/27/2016. There is possible mildly increased size of a heterogeneous gastric mass lesion at the approximate junction of the gastric fundus and body along the greater curvature. Exact size determination is somewhat difficult on the current exam with a probable maximum diameter of 4 cm , previously approximately 3.7 cm. The perigastric fat planes appear intact. No definite abdominal, retroperitoneal or pelvic lymphadenopathy is identified. Cholelithiasis is noted without evidence of acute cholecystitis. No biliary tract dilatation is seen. No gross small bowel pathology is seen. The liver, spleen, pancreas, adrenal glands and kidneys demonstrate no discrete abnormality. There is no aortic aneurysm. Small calcified uterine leiomyoma. The visualized osseous structures demonstrate no gross acute pathology or neoplastic disease. IMPRESSION: No definite CT findings of acute pathology are identified. A gastric mass lesion noted on a previous CT study of 12/27/2016 may demonstrate mildly increased size. Correlation with endoscopy may be considered. As on the prior study postsurgical changes are visualized along the right colon. There is no definite CT evidence of metastatic neoplastic disease. Cholelithiasis. 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 Given the source the failure of a PPI is not unexpected. She will require a surgical excision. I have discussed this with Nohemy Dunlap NP who will consult a surgeon. I have advised an EGD to exclude an alternative bleeding source. Using the [employer] statistical engineer I have discussed EGD again in detail and again informed Tobias of the risks of perforation and hemorrhage that could lead to more transfusions and immediate surgery. She has signed an informed consent. I also discussed jamal situation with her grandauclaritza and health care proxy Racheal. With Tobias's permission I contacted [facility] and discussed the case with Dr. Peraza of general surgery. She has accepted the patient for transfer. Code(s): K92.2 - GASTROINTESTINAL HEMORRHAGE, UNSPECIFIED Qualifiers: GI bleed type/associated pathology: unspecified gastrointestinal hemorrhage type Qualified Code(s): K92.2 - Gastrointestinal hemorrhage, unspecified (2) Submucosal lesion of stomach Code(s): K31.89 - OTHER DISEASES OF STOMACH AND DUODENUM (3) Condyloma acuminatum of anus Code(s): A63.0 - ANOGENITAL (VENEREAL) WARTS (4) History of colon cancer Code(s): Z85.038 - PERSONAL HISTORY OF MALIGNANT NEOPLASM OF LARGE INTESTINE (5) Fatty liver Code(s): K76.0 - FATTY (CHANGE OF) LIVER, NOT ELSEWHERE CLASSIFIED (6) Gallstones Code(s): K80.20 - CALCULUS OF GALLBLADDER W/O CHOLECYSTITIS W/O OBSTRUCTION
[2018-01-14] MEDS ORDERED: SODIUM CHLORIDE 1,000 ML IV SCH (18:15)
--- NOTE | 2018-01-14 18:33 | CONSULT ---
Consult Consult Specialty:: general surgery Referred by:: Germán VIRAMONTES Reason for Consultation:: Gastric Mass - History of Present Illness Chief Complaint: Gastric Mass History of Present Illness: 72 yo female PMH HTN, HLD, CAD, gastric submucosal mass with ulceration (12/2016 ), and colon cancer. Patient is a poor historian. She felt lightheaded since this morning. She had abdominal pain and bloody diarrhea since last night. Hgb 7.5. Gastric mass first diagnosed 12/2016. Did not followup at [facility]. EGD done 08/27/17 showed 3 x 3cm mass on the greater curve of the stomach with a 1 x 0.5cm area of ulceration. Pathology was negative for dysplasia or carcinoma. Patient was transfused in 2016 and 07/2017. Discussed with Dr. Bray. Will transfuse 2 units. We were asked to assess. - Past Medical History Cardio/Vascular: Yes: AFIB, Aneurysm, CAD, HTN, Hyperlipdemia, [place] Gastrointestinal: Yes: Cancer (Colon cancer resection at [facility] in 2014.), Constipation, Gastritis, GERD, GI Bleed (Ulcerated gastric greated curvature submucosal mass with recurring transfusion requiring bleeds- refused surgery), Hemorrhoids, Other (bleeding perianal condylomata ablated) Hepatobiliary: Yes: Cholelithiasis, Other (fatty liver) Musculoskeletal: Yes: Chronic low back pain (lumbar disc disease), Other ( Sciatica) - Past Surgical History Past Surgical History: Yes: Colectomy (partial colectomy 2014 for cancer), Colonoscopy, Oopherectomy, Upper Endoscopy - Alcohol/Substance Use Hx Alcohol Use: No - Smoking History Smoking history: Never smoked Have you smoked in the past 12 months: No Aproximately how many cigarettes per day: 0 - Social History Usual Living Arrangement: Alone ADL: Independent Occupation: Retired cook History of Recent Travel: No Home Medications - Allergies Allergies/Adverse Reactions: Allergies Allergy/AdvReac Type Severity Reaction Status Date / Time No Known Allergies Allergy Verified 01/14/18 09:29 - Home Medications Home Medications: Ambulatory Orders Atorvastatin Ca [Lipitor] 20 mg PO DAILY 12/25/16 Ferrous Sulfate 325 mg PO BID 08/12/17 Dextrose 5%-0.45% Saline [D5-1/2Ns -] 100 ml IV ASDIR #1 infus.bag 07/24/18 Pantoprazole Sodium [Protonix IV] 40 mg IVPUSH BID vial 01/14/18 oxyCODONE HCL [Roxicodone -] 5 mg PO Q6H PRN #4 tablet MDD 4 01/14/18 Family Disease History - Family Disease History Family Disease History: Other: Father (Heart Murmur, heart disease) Review of Systems - Review of Systems Constitutional: denies: Chills, Fever Eyes: denies: Blind Spots, Blurred Vision, Recent Change in Vision HENT: denies: Difficult Swallowing, Throat Pain Neck: denies: Pain on Movement, Tenderness Cardiovascular: denies: Chest Pain, Palpitations Respiratory: denies: Cough, SOB Gastrointestinal: reports: Abdominal Pain, Bloating. denies: Constipation, Diarrhea Genitourinary: denies: Dysuria, Flank Pain, Frequency Musculoskeletal: denies: Joint Pain, Joint Swelling Integumentary: denies: Pruritis, Rash Neurological: denies: Seizure, Syncope Endocrine: denies: Unexplained Weight Gain, Unexplained Weight Loss Hematology/Lymphatic: denies: Easily Bruised, Excessive Bleeding Psychiatric: denies: Anxiety, Depression Physical Exam Vital Signs: Vital Signs Temperature 98.2 F 01/14/18 16:17 Pulse Rate 71 01/14/18 16:17 Respiratory Rate 16 01/14/18 16:17 Blood Pressure 110/66 01/14/18 16:17 O2 Sat by Pulse Oximetry (%) 97 01/14/18 14:38 Vital Signs Period Temp Pulse Resp BP Sys/Person Pulse Ox Last 24 Hr 97.8 F-98.2 F 64-75 16-22 92-110/58-71 97-100 Constitutional: Yes: Well Nourished, No Distress, Calm Eyes: Yes: Conjunctiva Clear, EOM Intact HENT: Yes: Atraumatic, Normocephalic Neck: Yes: Supple, Trachea Midline Cardiovascular: Yes: Regular Rate and Rhythm, S1, S2 Respiratory: Yes: Regular, CTA Bilaterally Gastrointestinal: Yes: Normal Bowel Sounds, Soft. No: Abdomen, Obese, Palpable Mass, Tenderness, Tenderness, Epigastrium, Tenderness, Rebound ...Rectal Exam: Yes: Guaiac Positive, Sphincter Tone Normal. No: Hemorrhoids/ External, Hemorrhoids/Internal, Mass Renal/: No: CVA Tenderness - Left, CVA Tenderness - Right Musculoskeletal: No: Muscle Pain, Muscle Weakness Extremities: No: Cool, Cyanosis Edema: No Edema: LUE: 2+, RUE: 2+, LLE: 2+, RLE: 2+ Peripheral Pulses WNL: Yes Integumentary: No: Incision, Jaundice Neurological: Yes: Alert, Oriented Psychiatric: Yes: Alert, Oriented Labs: CBC, BMP 01/14/18 09:49 01/14/18 09:49 Imaging - Results Cat Scan: Report Reviewed, Image Reviewed (3cm gastric mass greater curvature) Problem List - Problems (1) Submucosal lesion of stomach Assessment/Plan: 72 yo female MMP with gastric mass with ulceration suspicious for adenocarcinomal or GIST diagnosed 1 year ago NPO and IVF hydration PPI Transfuse as needed repeat labs and tumor markers EGD for biopsy discuss [facility] followup versus surgical ressection in house. Thank you for the opportunity to participate in the care of this patient. Code(s): K31.89 - OTHER DISEASES OF STOMACH AND DUODENUM (2) Anemia Code(s): D64.9 - ANEMIA, UNSPECIFIED Qualifiers: Anemia type: unspecified type Qualified Code(s): D64.9 - Anemia, unspecified (3) GIB (gastrointestinal bleeding) Code(s): K92.2 - GASTROINTESTINAL HEMORRHAGE, UNSPECIFIED Qualifiers: GI bleed type/associated pathology: unspecified gastrointestinal hemorrhage type Qualified Code(s): K92.2 - Gastrointestinal hemorrhage, unspecified (4) Hyperlipidemia Code(s): E78.5 - HYPERLIPIDEMIA, UNSPECIFIED (5) Hypertension Code(s): I10 - ESSENTIAL (PRIMARY) HYPERTENSION Qualifiers: Hypertension type: unspecified Qualified Code(s): I10 - Essential (primary ) hypertension (6) Valvular disease Code(s): I38 - ENDOCARDITIS, VALVE UNSPECIFIED
[2018-01-14] MEDS ORDERED: oxyCODONE HCL 5 MG TABLET PO PRN (18:57)
[2018-01-14] MEDS ORDERED: DEXTROSE 5%-0.45% SALINE 1,000 ML IV SCH (19:00)
--- NOTE | 2018-01-14 20:41 | DS ---
Physical Exam: SUBJECTIVE: Patient seen and examined OBJECTIVE: Vital Signs Period Temp Pulse Resp BP Sys/Person Pulse Ox Last 24 Hr 97.8 F-98.2 F 64-75 16-22 92-110/58-71 97-100 PHYSICAL EXAM GENERAL: The patient is awake, alert, and fully oriented, in no acute distress. HEAD: Normal with no signs of trauma. EYES: PERRL, extraocular movements intact, sclera anicteric, conjunctiva clear. ENT: Ears normal, nares patent, oropharynx clear without exudates, moist mucous membranes. NECK: Trachea midline, full range of motion, supple. LUNGS: Breath sounds equal, clear to auscultation bilaterally, no wheezes, no crackles, no accessory muscle use. HEART: Regular rate and rhythm, S1, S2 without murmur, rub or gallop. ABDOMEN: Soft, nontender, nondistended, normoactive bowel sounds, no guarding, no rebound, no hepatosplenomegaly, no masses. EXTREMITIES: 2+ pulses, warm, well-perfused, no edema. NEUROLOGICAL: Cranial nerves II through XII grossly intact. Normal speech, gait not observed. PSYCH: Normal mood, normal affect. SKIN: Warm, dry, normal turgor, no rashes or lesions noted. LABS Laboratory Results - last 24 hr 01/14/18 01/14/18 01/14/18 09:45 09:49 09:49 WBC 14.7 H RBC 2.64 L Hgb 7.5 L Hct 22.5 L D MCV 85.3 MCH 28.4 MCHC 33.3 RDW 15.8 H Plt Count 196 MPV 8.4 Absolute Neuts (auto) 11.4 Neutrophils % 77.9 D Lymphocytes % 13.2 D Monocytes % 8.4 Eosinophils % 0.3 Basophils % 0.2 Nucleated RBC % 0 PT with INR INR PTT (Actin FS) Sodium 142 Potassium 3.4 L Chloride 105 Carbon Dioxide 29 Anion Gap 8 BUN 50 H Creatinine 1.0 Creat Clearance w eGFR 54.35 Random Glucose 113 H Lactic Acid 1.5 Calcium 8.5 Total Bilirubin 0.4 AST 14 L ALT 27 Alkaline Phosphatase 82 Creatine Kinase Troponin I Total Protein 5.9 L Albumin 3.0 L Lipase 133 Urine Color Urine Appearance Urine pH Ur Specific [place] Urine Protein Urine Glucose (UA) Urine Ketones Urine Blood Urine Nitrite Urine Bilirubin Urine Urobilinogen Ur Leukocyte Esterase Stool Occult Blood Blood Type Antibody Screen Crossmatch 01/14/18 01/14/18 01/14/18 09:49 09:49 09:49 WBC RBC Hgb Hct MCV MCH MCHC RDW Plt Count MPV Absolute Neuts (auto) Neutrophils % Lymphocytes % Monocytes % Eosinophils % Basophils % Nucleated RBC % PT with INR 12.10 INR 1.07 PTT (Actin FS) 22.1 L Sodium Potassium Chloride Carbon Dioxide Anion Gap BUN Creatinine Creat Clearance w eGFR Random Glucose Lactic Acid Calcium Total Bilirubin AST ALT Alkaline Phosphatase Creatine Kinase 37 Troponin I < 0.02 Total Protein Albumin Lipase Urine Color Urine Appearance Urine pH Ur Specific [place] Urine Protein Urine Glucose (UA) Urine Ketones Urine Blood Urine Nitrite Urine Bilirubin Urine Urobilinogen Ur Leukocyte Esterase Stool Occult Blood Blood Type O POSITIVE Antibody Screen Negative Crossmatch See Detail 01/14/18 01/14/18 09:53 14:04 WBC RBC Hgb Hct MCV MCH MCHC RDW Plt Count MPV Absolute Neuts (auto) Neutrophils % Lymphocytes % Monocytes % Eosinophils % Basophils % Nucleated RBC % PT with INR INR PTT (Actin FS) Sodium Potassium Chloride Carbon Dioxide Anion Gap BUN Creatinine Creat Clearance w eGFR Random Glucose Lactic Acid Calcium Total Bilirubin AST ALT Alkaline Phosphatase Creatine Kinase Troponin I Total Protein Albumin Lipase Urine Color Colorless Urine Appearance Clear Urine pH 5.0 D Ur Specific [place] 1.033 Urine Protein Negative Urine Glucose (UA) Negative Urine Ketones Negative Urine Blood Negative Urine Nitrite Negative Urine Bilirubin Negative Urine Urobilinogen Negative Ur Leukocyte Esterase Negative Stool Occult Blood Positive Blood Type Antibody Screen Crossmatch HOSPITAL COURSE: Date of Admission:01/14/18 Date of Discharge: 01/14/18 Pre hospital course 72 year-old female with a PMH significant for HTN, HLD, CAD, gastric submucosal mass with ulceration (12/2016), and colon cancer. Patient is a poor historian. Told ED provider she felt lightheaded since this morning and denied abdominal pain. She told this provider she has had abdominal pain and bloody diarrhea since last night. She has Hgb 7.5. Gastric mass first diagnosed 12/2016. EGD done 08/27/17 showed 3 x 3cm mass on the greater curve of the stomach with a 1 x 0.5cm area of ulceration. Pathology was negative for dysplasia or carcinoma. Patient was transfused in 12/2016 and 07/2017. Discussed with Dr. Bray. Will transfuse 2 units. ER course (1) Hgb 7.5, WBC 14.7 (2) K 3.4 (3) Stool occult positive Subsequent hospital course Acute blood loss anemia secondary to gastric submucosal mass with ulceration Colon cancer s/p resection --transfused 2U PRBC prior to transfer; needs repeat cbc --see GI Dr. Bray's note Hypertension --borderline hypotensive but maintaining MAP>65 --hold home chlorthalidone, lisinopril Hyperlipidemia --continue atorvastatin Coronary artery disease --not on ASA due to bleeding issues --hold lisinopril Hypokalemia --repleted with 3 runs IV; needs repeat K level FEN Fluids: D51/2 @ 83mL/hr Electrolytes: replete as indicated Nutrition: NPO DVT prophylaxis: mechanical only, oob, ambulation Dispo: transfer to [facility], general surgery, Dr. Peraza. Minutes to complete discharge: 35 Discharge Summary Reason For Visit: GASTROINTESTINAL HEMORRHAGE Current Active Problems Anemia (Acute) Condyloma acuminatum of anus (Acute) Dizziness (Acute) GIB (gastrointestinal bleeding) (Acute) Hypotension (Acute) Condition: Stable - Instructions Disposition: TRANSFER ACUTE CARE/OTHER HOSP - Home Medications Comprehensive Discharge Medication List: Ambulatory Orders Atorvastatin Ca [Lipitor] 20 mg PO DAILY 12/25/16 Ferrous Sulfate 325 mg PO BID 08/12/17 Dextrose 5%-0.45% Saline [D5-1/2Ns -] 100 ml IV ASDIR #1 infus.bag 01/14/18 Pantoprazole Sodium [Protonix IV] 40 mg IVPUSH BID vial 01/14/18 oxyCODONE HCL [Roxicodone -] 5 mg PO Q6H PRN #4 tablet MDD 4 01/14/18 This patient is new to me today: Yes Date on this admission: 01/14/18 Emergency Visit: Yes ED Registration Date: 01/14/18 Care time: The patient presented to the Emergency Department on the above date and was hospitalized for further evaluation of their emergent condition. Critical Care patient: No - Discharge Referral Referred to [facility] Med P.C.: No
[2018-01-14] MEDS ORDERED: FERROUS SO4 325 MG TABLET (FP) PO SCH (22:00)
[2018-01-14] MEDS ORDERED: PANTOPRAZOLE SODIUM 40 MG VIAL IVPUSH SCH (22:00)
[2018-01-15] MEDS ORDERED: PANTOPRAZOLE 40 MG TABLET (FP) PO SCH (10:00)
[2018-01-15] MEDS ORDERED: ATORVASTATIN CA 20 MG TABLET (FP) PO SCH (22:00)
== END 2018-01-14 22:55 | disposition short-term general hospital (02) | DRG 378 ==
LOC: JER 09:21 → JERBED 11:22 → J8W 13:41
PROVIDERS: ADMIT Internal Medicine; ATTEND Nurse Practitioner Acute Care
DX: K92.2 Gastrointestinal hemorrhage, unspecified (principal); D62 Acute posthemorrhagic anemia; K31.89 Other diseases of stomach and duodenum; K21.9 Gastro-esophageal reflux disease without esophagitis; E78.00 Pure hypercholesterolemia, unspecified; I10 Essential (primary) hypertension; K29.70 Gastritis, unspecified, without bleeding; I35.0 Nonrheumatic aortic (valve) stenosis; I25.10 Atherosclerotic heart disease of native coronary artery without angina pectoris; D64.9 Anemia, unspecified; A63.0 Anogenital (venereal) warts; K80.20 Calculus of gallbladder without cholecystitis without obstruction; I95.9 Hypotension, unspecified; K59.09 Other constipation; E87.6 Hypokalemia; M54.5 Low back pain; M51.36 Other intervertebral disc degeneration, lumbar region; K76.0 Fatty (change of) liver, not elsewhere classified; I48.91 Unspecified atrial fibrillation; I25.2 Old myocardial infarction; Z85.038 Personal history of other malignant neoplasm of large intestine
CPT/HCPCS: 36415; 36430; 71045-TC-FY; 74177-TC; 80053; 81003; 82272; 82550; 83605; 83690; 84484; 85025; 85610; 85730; 86850; 86900; 86901; 86922; 87040; 87086; 93005; 93010; 99285-25; J0131; P9038; P9058

== ENCOUNTER 2019-07-27 10:35 | Inpatient (IN) | payer OTHER ==
[2019-07-27] MEDS ORDERED: ACETAMINOPHEN 1000 MG/100 ML VIAL (NON FORMULARY) IVPB ONE (11:42)
[2019-07-27] MEDS ORDERED: SODIUM CHLORIDE 0.9% 500 ML INFUS.BAG IV ONE (11:42)
--- NOTE | 2019-07-27 11:42 | PDOC ---
History of Present Illness - General Chief Complaint: Pain, Acute Stated Complaint: ABD PAIN Time Seen by Provider: 07/27/19 11:11 - History of Present Illness Initial Comments: Kimberli Desai is a 74yo woman wiht a PMH Of HTN, HLD, paroxysma a- fib, pre DM, gastric mass, PUD, chronic anemia who presents with epigastric and RUQ pain since Saturday. The pain extends to the right flank. She states that she has tried taking Tylenol and drinking tea without relief. She denies any nausea, vomiting, diarrhea, fever/chills, cough, or urinary changes recent. She denies change in diet or recent travel. She has never had similar pain in the past. Ms Desai says that she has not been taking her home omeprazole because a doctor told her she had been taking it too long. Past History - Past Medical History Allergies/Adverse Reactions: Allergies Allergy/AdvReac Type Severity Reaction Status Date / Time No Known Allergies Allergy Verified 01/14/18 09:29 Home Medications: Ambulatory Orders Atorvastatin Ca [Lipitor] 20 mg PO DAILY 12/25/16 Ferrous Sulfate 325 mg PO BID 08/12/17 Dextrose 5%-0.45% Saline [D5-1/2Ns -] 100 ml IV ASDIR #1 infus.bag 01/14/18 Pantoprazole Sodium [Protonix IV] 40 mg IVPUSH BID vial 01/14/18 oxyCODONE HCL [Roxicodone -] 5 mg PO Q6H PRN #4 tablet MDD 4 01/14/18 Anemia: Yes Asthma: Yes Cancer: Yes (Colon CA) Cardiac Disorders: Yes (CAD,HEARTMUR,AORTIC STENOSIS,AF) COPD: No GI Disorders: Yes (GASTRITIS,GERD) HTN: Yes Hypercholesterolemia: Yes Liver Disease: Yes (Fatty liver 6 years ago) - Surgical History Abdominal Surgery: Yes (Colon CA removal 2014) - Immunization History Immunization Up to Date: Yes - Psycho Social/Smoking Cessation Hx Smoking Status: No Smoking History: Never smoked Have you smoked in the past 12 months: No Number of Cigarettes Smoked Daily: 0 Information on smoking cessation initiated: No Hx Alcohol Use: No Drug/Substance Use Hx: No Substance Use Type: None Hx Substance Use Treatment: No Review of Systems - Review of Systems Comments:: General: No fevers, no chills, no weight or appetite change, no malaise HEENT: No changes in vision, no changes in hearing, no congestion, no sore throat CV: No chest pain, no palpitations, no LE edema Pulm: No SOB, no cough, no wheezing GI: See HPI : No frequency, no urgency, no dysuria Musc: No back pain, no joint swelling, no recent injury Skin: No rash, no lesions, no erythema Endo: No excessive thirst, no heat/cold intolerance Heme: No unusual bruising or bleeding, no swollen glands Neuro: No syncope, no numbness/tingling, no focal weakness Vasc: No claudication Psych: No recent change in mood, no SI or HI *Physical Exam - Vital Signs Last Vital Signs Temp Pulse Resp BP Pulse Ox 98 F 58 L 20 135/71 100 07/27/19 11:03 07/27/19 11:03 07/27/19 11:03 07/27/19 11:07/27/19 11:03 - Physical Exam General: Comfortable, no acute distress HEENT: Atraumatic, PERRL, EOMI, MMM, voice normal, normal neck ROM Cards: RRR, no murmur appreciated Pulm: Comfortable on room air, clear to auscultation bilaterally Abd: Soft, nondistended. Mild epigastric TTP. Marked RUQ tenderness with + murphys sign Ext: Atraumatic. No LE edema. ROM intact. WWP Skin: Normal color, no rashes or lesions Neuro: A&Ox3, CN grossly intact, normal speech, motor/sensory grossly intact and symmetric Psych: Mood appropriate to situation ED Treatment Course - LABORATORY CBC & Chemistry Diagram: 07/27/19 12:15 07/27/19 12:15 Medical Decision Making - Medical Decision Making 07/27/19 11:37 Kimberli Desai is a 74yo woman wiht a PMH Of HTN, HLD, paroxysma a- fib, pre DM, gastric mass, PUD, chronic anemia who presents with epigastric and RUQ pain since Saturday without associated symptoms. - Pain most likely due to known PUD vs cholecystitis or symptomatic cholelithiasis; had prior abd US showing gallstones. May also be pancreatitis, kidney stone, ACS - CBC, CMP, lipase, lactate, trop, EKG - US RUQ, renal - IVF, acetaminophen, famotidine 07/27/19 13:46 - US w/ right renal fullness. May need CT, but will obtain UA first - Labs reviewed. No significant abnormalities 07/27/19 15:28 - UA negative for UTI or blood - Pt feeling improved, but still has some pain. Maalox/lidocaine ordered for continued symptoms - Will reassess, but likely to be able to go home if feeling improved 07/27/19 16:35 - Continued pain - CT abd/pelvis ordered for continued management 07/27/19 17:54 - CT notes gallstones but no other significant abnormalities - Pt stil reporting severe pain - Will admit for intractable abdominal pain. Sign out given to admitting team by Dr Torres. Discussed with Dr Alton Jenkins PGY2 Discharge - Discharge Information Problems reviewed: Yes Clinical Impression/Diagnosis: Abdominal pain Qualifiers: Abdominal location: generalized Qualified Code(s): R10.84 - Generalized abdominal pain Cholelithiasis Qualifiers: Cholelithiasis location: gallbladder Cholecystitis presence: without cholecystitis Biliary obstruction: without biliary obstruction Qualified Code(s) : K80.20 - Calculus of gallbladder without cholecystitis without obstruction Condition: Fair - Admission Yes - Follow up/Referral - Patient Discharge Instructions - Post Discharge Activity
[2019-07-27] MEDS ORDERED: ACETAMINOPHEN INJECTION 100 ML IVPB ONE (12:09)
[2019-07-27] MEDS ORDERED: FAMOTIDINE 20 MG/50 ML IVPB 20 MG/50 ML MG IVPB ONE (12:17)
[2019-07-27 12:53] LABS: BASO % 1.1 % (0-2.0); EOS % 1.3 % (0-4.5); HEMATOCRIT 41.5 % (32.4-45.2); HEMOGLOBIN 13.9 GM/dL (10.7-15.3); LYMPH % 23.5 % (8-40); MCH 29.5 pg (25.7-33.7); MCHC 33.6 g/dl (32.0-36.0); MEAN CELL VOLUME 87.8 fl (80-96); MEAN PLT VOLUME 9.5 fl (7.5-11.1); MONO % 10.7 % (3.8-10.2); NEUT % 63.4 % (42.8-82.8); RBC 4.72 M/mm3 (3.60-5.2); RDW 13.2 % (11.6-15.6)
[2019-07-27 13:06] LABS: ALBUMIN 3.8 g/dl (3.4-5.0); BILIRUBIN,TOTAL 0.4 mg/dL (0.2-1); BLOOD UREA NITROGEN 20.8 mg/dL (7-18); CALCIUM 9.5 mg/dL (8.5-10.1); CREATININE 0.9 mg/dL (0.55-1.3); POTASSIUM 3.6 mmol/L (3.5-5.1)
--- NOTE | 2019-07-27 13:38 | PDOC ---
Documentation entered by Mundo Jaffe SCRIBE, acting as scribe for Kiara Dang DO. Kiara Dang DO: This documentation has been prepared by the Alannah oconnor Nirvannie, SCRIBE, under my direction and personally reviewed by me in its entirety. I confirm that the documentation accurately reflects all work, treatment, procedures, and medical decision making performed by me. Attending Attestation - Resident Resident Name: GregoryMarcela - ED Attending Attestation I have performed the following: I have examined & evaluated the patient, The case was reviewed & discussed with the resident, I agree w/resident's findings & plan, Exceptions are as noted - HPI HPI: 07/27/19 13:43 The patient is a 74 year old female, with a significant past medical history of HTN, HLD, paroxysmal Afib, pre-DM, gastric mass, PUD, chronic anemia, who presents to the emergency department with 3 days of abdominal pain. Patients pain is localized to the right flank, RUQ. She notes occasional usage of her Omeprazole secondary to PCP recommendation. She denies recent fevers, chills, headache or dizziness. She denies recent dysuria, frequency, urgency or hematuria. She denies recent chest pain or shortness of breath. Allergies: NKDA - Physicial Exam PE: 07/27/19 13:44 Constitutional: Awake, alert, oriented. No acute distress. Head: Normocephalic. Atraumatic Eyes: PERRL. EOMI. Conjunctivae are not pale. ENT: Mucous membranes are moist and intact. Posterior pharynx without exudates or erythema. Uvula midline. Neck: Supple. Full ROM. No lymphadenopathy. Cardiovascular: Regular rate. Regular rhythm. S1, S2 regular. Distal pulses are 2+ and symmetric. Pulmonary/Chest: No evidence of respiratory distress. Clear to auscultation bilaterally No wheezing, rales or rhonchi. Abdominal: +RUQ, R suprapubic tenderness. Soft and non-distended. No rebound , guarding or rigidity. No organomegaly. No palpable masses. Good bowel sounds. Back: +R CVA tenderness. Musculoskeletal: No edema. No cyanosis. No clubbing. Full range of motion in all extremities. No calf tenderness. Radial/pedal pulses are intact and 2+ bilaterally Skin: Skin is warm and dry. No petechiae. No purpura. Neurological: Alert and oriented to person, place, and time. Cranial nerves II -XII are grossly intact. Normal speech. Strength is grossly symmetric. No sensory deficits. Psychiatric: Good eye contact. Normal interaction, affect and behavior. - Medical Decision Making 07/27/19 13:06 I, Dr. Kiara Dang, DO, attest that this document has been prepared under my direction and personally reviewed by me in its entirety. I further attest, that it accurately reflects all work, treatment, procedures and medical decision -making performed by me. a/p: 74yo female with abd pain - r sided abd pain -hx of gallstones, no hemanth -no assoc n/v/d -pain since saturday -no dysuria or hematuria- seen at urgent care and sent for further evaluation -will send labs, RUQ and renal ultrasound, ua -will medicate for pain -will monitor and reassess -pt is nontoxic in appearance 07/27/19 14:32 gallstones without acute hemanth pending urine 07/27/19 15:31 ua neg pt feeling better pt with cholelithiasis without acute cholecystitis 07/27/19 15:55 pt now with worsening pain, will order ct 07/27/19 17:[address] however pt still with pain on the R side pt with intractable pain will need admission for intractable abd pain 07/27/19 17:37 resident discussed the case with Dr. Romero who accepts pt to service Discharge - Discharge Information Problems reviewed: Yes Clinical Impression/Diagnosis: Abdominal pain, Cholelithiasis Condition: Fair - Admission Yes - Follow up/Referral Referrals: Robb Romero MD [Primary Care Provider] - - Patient Discharge Instructions - Post Discharge Activity Heart Score/ECG Review - ECG Intrepretation Comment:: 07/27/19 16:54 sinus at 67, nl axis, nl interval, no acute st/t wave findings
[2019-07-27 14:28] LABS: PLATELET COUNT 186 K/MM3 (134-434); PLATELET ESTIMATE NORMAL
[2019-07-27 15:20] LABS: EPI CELLS 0.6 /HPF (0-5/HPF); HYALINE CASTS 0 /lpf (0-8); PH,URINE 7.5 (5.0-8.0); URINE APPEARANCE CLEAR; URINE BACTERIA 9.6 /hpf (NEGATIVE); URINE BILIRUBIN NEGATIVE (NEGATIVE); URINE COLOR YELLOW; URINE GLUCOSE (UA) NEGATIVE (NEGATIVE); URINE KETONE NEGATIVE (NEGATIVE); URINE LEUK ESTERASE NEGATIVE (NEGATIVE); URINE NITRITE NEGATIVE (NEGATIVE); URINE PROTEIN NEGATIVE (NEGATIVE); URINE RBC 4 /hpf (0-4); URINE UROBILINOGEN 0.2 mg/dL (0.2-1.0); URINE WBC 0 /hpf (0-5)
[2019-07-27] MEDS ORDERED: MAG HYDROX/AL HYDROX/SIMETH 30 ML UNIT-DOSE CUP PO ONE (15:33)
[2019-07-27] MEDS ORDERED: LIDOCAINE VISCOUS 2% ORAL/TOP 100 ML BOTTLE MM ONE (15:33)
[2019-07-27] MEDS ORDERED: LIDOCAINE VISCOUS 2% ORAL/TOP 20 ML UNIT-DOSE CUP ONE (15:44)
[2019-07-27] MEDS ORDERED: MAG HYDROX/AL HYDROX/SIMETH 30 ML UNIT-DOSE CUP ONE (15:44)
[2019-07-27] MEDS ORDERED: METOCLOPRAMIDE HCL INJECTION 10 MG/2 ML VIAL IVPUSH ONE (16:52)
[2019-07-27] MEDS ORDERED: morphine CARPU-JECT 4 MG/1 ML DISP.SYRIN IVPUSH ONE (17:32)
--- NOTE | 2019-07-27 19:09 | HP ---
Admitting History and Physical - Primary Care Physician PCP: Micaela Link - Admission History of Present Illness: Kimberli Desai is a 74yo woman wiht a PMH Of HTN, HLD, paroxysma a- fib, pre DM, gastric mass, PUD, chronic anemia who presents with epigastric and RUQ pain since Saturday. The pain extends to the right flank. She states that she has tried taking Tylenol and drinking tea without relief. She denies any nausea, vomiting, diarrhea, fever/chills, cough, or urinary changes recent. She denies change in diet or recent travel. She has never had similar pain in the past. Ms Giselle says that she has not been taking her home omeprazole because a doctor told her she had been taking it too long. 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- refused surgery), Hemorrhoids, Other (bleeding perianal condylomata ablated) Hepatobiliary: Yes: Cholelithiasis, Other (fatty liver) Heme/Onc: Yes: Anemia Musculoskeletal: Yes: Chronic low back pain (lumbar disc disease), Other ( Sciatica) - Past Surgical History Past Surgical History: Yes: Colectomy (partial colectomy 2014 for cancer), Colonoscopy, Oopherectomy, Upper Endoscopy - Smoking History Smoking history: Never smoked Have you smoked in the past 12 months: No Aproximately how many cigarettes per day: 0 - Alcohol/Substance Use Hx Alcohol Use: No - Social History ADL: Independent Occupation: Retired [employer] History of Recent Travel: No Home Medications - Allergies Allergies/Adverse Reactions: Allergies Allergy/AdvReac Type Severity Reaction Status Date / Time No Known Allergies Allergy Verified 01/14/18 09:29 - Home Medications Home Medications: Ambulatory Orders Atorvastatin Ca [Lipitor] 20 mg PO DAILY 12/25/16 Ferrous Sulfate 325 mg PO BID 08/12/17 Dextrose 5%-0.45% Saline [D5-1/2Ns -] 100 ml IV ASDIR #1 infus.bag 01/14/18 Pantoprazole Sodium [Protonix IV] 40 mg IVPUSH BID vial 01/14/18 oxyCODONE HCL [Roxicodone -] 5 mg PO Q6H PRN #4 tablet MDD 4 01/14/18 Physical Examination Vital Signs: Vital Signs Temperature 98 F 07/27/19 11:03 Pulse Rate 58 L 07/27/19 11:03 Respiratory Rate 20 07/27/19 11:03 Blood Pressure 135/71 07/27/19 11:03 O2 Sat by Pulse Oximetry (%) 100 07/27/19 11:03 Constitutional: Yes: No Distress HENT: Yes: Atraumatic Neck: Yes: Supple Cardiovascular: Yes: Regular Rate and Rhythm Respiratory: Yes: CTA Bilaterally Gastrointestinal: Yes: Normal Bowel Sounds, Tenderness, Rebound (epigastric) Extremities: Yes: WNL Edema: No Peripheral Pulses WNL: Yes Neurological: Yes: Alert, Oriented Labs: CBC, BMP 07/27/19 12:15 07/27/19 12:15 Imaging - Results X-ray: Report Reviewed Cat Scan: Report Reviewed Ultrasound: Report Reviewed Problem List - Problems (1) Abdominal pain Assessment/Plan: npo prn painmeds ivf Code(s): R10.9 - UNSPECIFIED ABDOMINAL PAIN Qualifiers: Abdominal location: generalized Qualified Code(s): R10.84 - Generalized abdominal pain (2) Cholelithiasis Code(s): K80.20 - CALCULUS OF GALLBLADDER W/O CHOLECYSTITIS W/O OBSTRUCTION Qualifiers: Cholelithiasis location: gallbladder Cholecystitis presence: without cholecystitis Biliary obstruction: without biliary obstruction Qualified Code(s): K80.20 - Calculus of gallbladder without cholecystitis without obstruction (3) History of colon cancer Code(s): Z85.038 - PERSONAL HISTORY OF MALIGNANT NEOPLASM OF LARGE INTESTINE (4) Hyperlipidemia Code(s): E78.5 - HYPERLIPIDEMIA, UNSPECIFIED (5) Hypertension Code(s): I10 - ESSENTIAL (PRIMARY) HYPERTENSION Assessment/Plan Laboratory Tests 07/27/19 07/27/19 07/27/19 12:15 12:15 12:15 WBC 9.0 RBC 4.72 Hgb 13.9 Hct 41.5 D MCV 87.8 MCH 29.5 MCHC 33.6 RDW 13.2 D Plt Count 186 MPV 9.5 D Absolute Neuts (auto) 5.7 Neutrophils % 63.4 Lymphocytes % 23.5 D Monocytes % 10.7 H Eosinophils % 1.3 D Basophils % 1.1 D Nucleated RBC % 0 Platelet Estimate Normal Platelet Comment Present Sodium 136 Potassium 3.6 Chloride 94 L Carbon Dioxide 34 H Anion Gap 7 L BUN 20.8 H Creatinine 0.9 Est GFR (CKD-EPI)AfAm 72.49 Est GFR (CKD-EPI)NonAf 62.55 Random Glucose 106 Lactic Acid 1.9 Calcium 9.5 Total Bilirubin 0.4 AST 41 H ALT 45 Alkaline Phosphatase 124 H Total Protein 8.0 Albumin 3.8 Lipase Urine Color Urine Appearance Urine pH Ur Specific [place] Urine Protein Urine Glucose (UA) Urine Ketones Urine Blood Urine Nitrite Urine Bilirubin Urine Urobilinogen Ur Leukocyte Esterase Urine WBC (Auto) Urine RBC (Auto) Urine Casts (Auto) U Epithel Cells (Auto) Urine Bacteria (Auto) 07/27/19 07/27/19 12:15 15:00 WBC RBC Hgb Hct MCV MCH MCHC RDW Plt Count MPV Absolute Neuts (auto) Neutrophils % Lymphocytes % Monocytes % Eosinophils % Basophils % Nucleated RBC % Platelet Estimate Platelet Comment Sodium Potassium Chloride Carbon Dioxide Anion Gap BUN Creatinine Est GFR (CKD-EPI)AfAm Est GFR (CKD-EPI)NonAf Random Glucose Lactic Acid Calcium Total Bilirubin AST ALT Alkaline Phosphatase Total Protein Albumin Lipase 115 Urine Color Yellow Urine Appearance Clear Urine pH 7.5 D Ur Specific [place] 1.008 L Urine Protein Negative Urine Glucose (UA) Negative Urine Ketones Negative Urine Blood Trace Urine Nitrite Negative Urine Bilirubin Negative Urine Urobilinogen 0.2 Ur Leukocyte Esterase Negative Urine WBC (Auto) 0 Urine RBC (Auto) 4 Urine Casts (Auto) 0 U Epithel Cells (Auto) 0.6 Urine Bacteria (Auto) 9.6 Active Medications Generic Name Dose Route Start Last Admin Trade Name Freq PRN Reason Stop Dose Admin Sodium Chloride 1,000 mls @ 75 mls/hr 07/27/19 19:15 07/27/19 20:28 Normal Saline - IV 75 mls/hr ASDIR JOSE Administration Piperacillin Sod/Tazobactam 50 mls @ 100 mls/hr 07/28/19 18:00 Sod 3.375 gm/ Dextrose IVPB Q8H-IV JOSE Protocol Piperacillin Sod/Tazobactam 50 mls @ 100 mls/hr 07/28/19 18:00 02/04/20 17:28 Sod 3.375 gm/ Dextrose IVPB 07/29/19 10:29 100 mls/hr Q8H-IV JOSE Administration Protocol Morphine Sulfate 2 mg 07/27/19 19:09 07/28/19 09:45 Morphine Sulfate IVPUSH 2 mg Q4H PRN Administration PAIN LEVEL 4 - 6 Pantoprazole Sodium 40 mg 07/27/19 19:15 07/28/19 09:45 Protonix Iv IVPUSH 40 mg DAILY JOSE Administration
[2019-07-27] MEDS ORDERED: METOCLOPRAMIDE HCL INJECTION 10 MG/2 ML VIAL ONE (20:04)
[2019-07-27] MEDS ORDERED: morphine SULFATE 4 MG/ML VIAL ONE (20:05)
[2019-07-27] MEDS ORDERED: PANTOPRAZOLE SODIUM 40 MG VIAL ONE (20:05)
[2019-07-27] MEDS: SODIUM CHLORIDE 1,000 ML IV SCH (20:28)
[2019-07-27] MEDS: PANTOPRAZOLE SODIUM 40 MG VIAL IVPUSH SCH (20:29)
[2019-07-28 02:04] VITALS: BMI 29.6
[2019-07-28] MEDS: MORPHINE SULFATE 2 MG/ML VIAL IVPUSH PRN ×3 (05:28→22:02)
--- NOTE | 2019-07-28 08:25 | CONSULT ---
- Consultation REQUESTING PROVIDER: CONSULT REQUEST: We have been asked to surgically evaluate this patient for abdominal pain. Patient seen and evaluated with Dr Christina at the bedside. PCP:Micaela Link HISTORY OF PRESENT ILLNESS: Initial Comments: Kimberli Desai is a 74yo woman wiht a PMH Of HTN, HLD, paroxysma a- fib, pre DM, gastric mass, PUD, chronic anemia who presents with epigastric and RUQ pain since Saturday. The pain extends to the right flank. She states that she has tried taking Tylenol and drinking tea without relief. She denies any nausea, vomiting, diarrhea, fever/chills, cough, or urinary changes recent. She denies change in diet or recent travel. She has never had similar pain in the past. Ms Desai says that she has not been taking her home omeprazole because a doctor told her she had been taking it too long. She states all of her pain is over the Right abdomen radiating to her flank an back. Patient is a poor historian. Past History - Past Medical History Allergies/Adverse Reactions: Allergies Allergy/AdvReac Type Severity Reaction Status Date / Time No Known Allergies Allergy Verified 01/14/18 09:29 Home Medications: Ambulatory Orders Atorvastatin Ca [Lipitor] 20 mg PO DAILY 12/25/16 Ferrous Sulfate 325 mg PO BID 08/12/17 Dextrose 5%-0.45% Saline [D5-1/2Ns -] 100 ml IV ASDIR #1 infus.bag 01/14/18 Pantoprazole Sodium [Protonix IV] 40 mg IVPUSH BID vial 01/14/18 oxyCODONE HCL [Roxicodone -] 5 mg PO Q6H PRN #4 tablet MDD 4 01/14/18 Anemia: Yes Asthma: Yes Cancer: Yes (Colon CA) Cardiac Disorders: Yes (CAD,HEARTMUR,AORTIC STENOSIS,AF) COPD: No GI Disorders: Yes (GASTRITIS,GERD) HTN: Yes Hypercholesterolemia: Yes Liver Disease: Yes (Fatty liver 6 years ago) - Surgical History Abdominal Surgery: Yes (Colon CA removal 2014) - Immunization History Immunization Up to Date: Yes - Psycho Social/Smoking Cessation Hx Smoking Status: No Smoking History: Never smoked Have you smoked in the past 12 months: No Number of Cigarettes Smoked Daily: 0 Information on smoking cessation initiated: No Hx Alcohol Use: No Drug/Substance Use Hx: No Substance Use Type: None Hx Substance Use Treatment: No Review of Systems - Review of Systems Comments:: General: No fevers, no chills, no weight or appetite change, no malaise HEENT: No changes in vision, no changes in hearing, no congestion, no sore throat CV: No chest pain, no palpitations, no LE edema Pulm: No SOB, no cough, no wheezing GI: See HPI : No frequency, no urgency, no dysuria Musc: No back pain, no joint swelling, no recent injury Skin: No rash, no lesions, no erythema Endo: No excessive thirst, no heat/cold intolerance Heme: No unusual bruising or bleeding, no swollen glands Neuro: No syncope, no numbness/tingling, no focal weakness Vasc: No claudication Psych: No recent change in mood, no SI or HI *Physical Exam - Vital Signs Temp 98.1 F 07/28/19 01:57 Pulse 54 L 07/28/19 01:57 Resp 18 07/28/19 02:00 BP 149/76 07/28/19 01:57 Pulse Ox 100 07/28/19 02:00 Intake & Output 07/27/19 07/27/19 07/28/19 11:59 23:59 11:59 Intake Total 375 Balance 375 Weight 158 lb 172 lb 5 oz Intake: IV 375 Normal Saline - 1,000 ml 375 @ 75 mls/hr IV ASDIR JOSE Rx#:[id number] Oral 0 Other: Voiding Method Toilet Toilet # Unmeasured Voids Void 2 Bowel Movement No Height 5 ft 4 in 5 ft 4 in Body Mass Index (BMI) 27.1 29.6 Weight Measurement Method Built in [facility] Weight Measurement Method Est/Stated by Patient PE: General: A&Ox3 in mild distress 2/2 pain HEENT: Atraumatic, voice normal, Pulm: Unlabored resp on RA Abd: Obese, Soft, nondistended. with diffuse TTp throughout, severe focal pain over right Upper and lower quadrant, no masses palpated. several wel healed scars thgouhout abdomen. Ext: Atraumatic. No LE edema. moving all extremities without limitation. Skin: Normal color, no rashes or lesions Neuro: A&Ox3, CN grossly intact, normal speech, motor/sensory grossly intact and symmetric Psych: Mood appropriate to situation Ct Abdomen/Pelvis: Cholelithiasis Problem List - Problems (1) Abdominal pain Assessment/Plan: Abdominal pain of unclear etiology in patient with history of multiple abdominal surgeries. -Continue NPO -f/u HIDA scan -Pain control -surgery to follow Code(s): R10.9 - UNSPECIFIED ABDOMINAL PAIN Qualifiers: Abdominal location: generalized Qualified Code(s): R10.84 - Generalized abdominal pain
--- NOTE | 2019-07-28 09:24 | EKG ---
Test Reason : Blood Pressure : / mmHG Vent. Rate : 062 BPM Atrial Rate : 062 BPM P-R Int : 198 ms QRS Dur : 092 ms QT Int : 442 ms P-R-T Axes : 035 -36 -16 degrees QTc Int : 448 ms NORMAL SINUS RHYTHM LEFT AXIS DEVIATION ABNORMAL ECG WHEN COMPARED WITH ECG OF 27-JUL-2019 15:39, T WAVE INVERSION NOW EVIDENT IN ANTERIOR LEADS QT HAS SHORTENED Confirmed by Richard Flores MD ([id number]) on 07/28/2019 9:24:18 AM Referred By: Confirmed By:Richard Flores MD
--- NOTE | 2019-07-28 09:27 | EKG ---
Test Reason : Blood Pressure : / mmHG Vent. Rate : 067 BPM Atrial Rate : 067 BPM P-R Int : 170 ms QRS Dur : 088 ms QT Int : 488 ms P-R-T Axes : 049 -27 012 degrees QTc Int : 515 ms POOR DATA QUALITY, INTERPRETATION MAY BE ADVERSELY AFFECTED NORMAL SINUS RHYTHM NORMAL ECG WHEN COMPARED WITH ECG OF 14-JAN-2018 09:41, NONSPECIFIC T WAVE ABNORMALITY, IMPROVED IN INFERIOR LEADS Confirmed by Richard Flores MD ([id number]) on 07/28/2019 9:26:58 AM Referred By: Confirmed By:Richard Flores MD
[2019-07-28] MEDS: PANTOPRAZOLE SODIUM 40 MG VIAL IVPUSH SCH (09:45)
--- NOTE | 2019-07-28 13:06 | CON.CARD ---
Consult Consult Specialty:: Cardiology Referred by:: Dr. Link Reason for Consultation:: Cardiac evaluation - History of Present Illness Chief Complaint: Abdominal pain History of Present Illness: Patient is a 74 year old female with underlying history of HTN, hypercholesterolemia, PAF, pre-DM, PUD, history of gastric mass and chronic anemia who presented with RMQ abdominal pain. Pain extended to the right flank. She does not seem to have chest pain or shortness of breath. She denies palpitations. She denies paroxysmal nocturnal dyspnea or orthopnea. She denies fever or chills. She denies headache or lightheadedness. She denies nausea or vomiting. - History Source History Provided By: Patient, Medical Record Limitations to Obtaining History: Language Barrier - Past Medical History Cardio/Vascular: Yes: AFIB, HTN, Hyperlipdemia Gastrointestinal: Yes: Cancer (Colon cancer resection at [facility] in 2014.), Gastritis, GERD, GI Bleed (Ulcerated gastric greated curvature submucosal mass with recurring transfusion requiring bleeds- refused surgery), Hemorrhoids, Other (bleeding perianal condylomata ablated) Hepatobiliary: Yes: Cholelithiasis, Other (fatty liver) ...: No Musculoskeletal: Yes: Chronic low back pain (lumbar disc disease), Other ( Sciatica) - Past Surgical History Past Surgical History: Yes: Colectomy (partial colectomy 2014 for cancer), Colonoscopy, Oopherectomy, Upper Endoscopy - Alcohol/Substance Use Hx Alcohol Use: No - Smoking History Smoking history: Never smoked Have you smoked in the past 12 months: No Aproximately how many cigarettes per day: 0 - Social History Usual Living Arrangement: Alone ADL: Independent Occupation: Retired cook History of Recent Travel: No Home Medications - Allergies Allergies/Adverse Reactions: Allergies Allergy/AdvReac Type Severity Reaction Status Date / Time No Known Allergies Allergy Verified 01/14/18 09:29 - Home Medications Home Medications: Ambulatory Orders Atorvastatin Ca [Lipitor] 20 mg PO DAILY 12/25/16 Ferrous Sulfate 325 mg PO BID 08/12/17 Dextrose 5%-0.45% Saline [D5-1/2Ns -] 100 ml IV ASDIR #1 infus.bag 01/14/18 Pantoprazole Sodium [Protonix IV] 40 mg IVPUSH BID vial 01/14/18 oxyCODONE HCL [Roxicodone -] 5 mg PO Q6H PRN #4 tablet MDD 4 01/14/18 Review of Systems - Review of Systems Constitutional: denies: Chills, Fever Cardiovascular: denies: Chest Pain, Palpitations, Shortness of Breath Respiratory: denies: Cough, Hemoptysis, Orthopnea, PND, SOB, SOB on Exertion Gastrointestinal: reports: Abdominal Pain, Constipation. denies: Diarrhea, Melena, Nausea, Rectal Bleeding, Vomiting Genitourinary: denies: Dysuria, Hematuria Neurological: denies: Dizziness, Headache, Seizure, Syncope Vital Signs: Vital Signs Temperature 97.8 F 07/28/19 10:00 Pulse Rate 50 L 07/28/19 10:00 Respiratory Rate 20 07/28/19 10:00 Blood Pressure 128/60 07/28/19 10:00 O2 Sat by Pulse Oximetry (%) 100 07/28/19 02:00 Neck: Yes: Supple Respiratory: Yes: CTA Bilaterally Gastrointestinal: Yes: Normal Bowel Sounds, Soft. No: Tenderness Cardiovascular: Yes: Regular Rate and Rhythm JVD: No Heart Sounds: Yes: S1, S2. No: Gallop Murmur: Yes: Systolic Murmur, Grade 1 Edema: No - Other Data Labs, Other Data: CBC, BMP 07/27/19 12:15 07/27/19 12:15 Troponin, BNP 07/27/19 20:45 Troponin I < 0.02 Laboratory Results - last 24 hr 07/27/19 07/27/19 07/27/19 12:15 15:00 20:45 Plt Count 186 Platelet Estimate Normal Platelet Comment Present Creatine Kinase 47 Troponin I < 0.02 Urine Color Yellow Urine Appearance Clear Urine pH 7.5 D Ur Specific [place] 1.008 L Urine Protein Negative Urine Glucose (UA) Negative Urine Ketones Negative Urine Blood Trace Urine Nitrite Negative Urine Bilirubin Negative Urine Urobilinogen 0.2 Ur Leukocyte Esterase Negative Urine WBC (Auto) 0 Urine RBC (Auto) 4 Urine Casts (Auto) 0 U Epithel Cells (Auto) 0.6 Urine Bacteria (Auto) 9.6 Normal sinus rhythm with normal ECG Imaging - Results Chest X-ray: Report Reviewed (Cardiomegaly) Cat Scan: Report Reviewed (Abdominal CT cholelithiasis) EKG: Report Reviewed Problem List - Problems (1) Abdominal pain Code(s): R10.9 - UNSPECIFIED ABDOMINAL PAIN Qualifiers: Abdominal location: generalized Qualified Code(s): R10.84 - Generalized abdominal pain (2) Cholelithiasis Code(s): K80.20 - CALCULUS OF GALLBLADDER W/O CHOLECYSTITIS W/O OBSTRUCTION Qualifiers: Cholelithiasis location: gallbladder Cholecystitis presence: without cholecystitis Biliary obstruction: without biliary obstruction Qualified Code(s): K80.20 - Calculus of gallbladder without cholecystitis without obstruction (3) Anemia Code(s): D64.9 - ANEMIA, UNSPECIFIED Qualifiers: Anemia type: unspecified type Qualified Code(s): D64.9 - Anemia, unspecified (4) Fatty liver Code(s): K76.0 - FATTY (CHANGE OF) LIVER, NOT ELSEWHERE CLASSIFIED (5) History of colon cancer Code(s): Z85.038 - PERSONAL HISTORY OF MALIGNANT NEOPLASM OF LARGE INTESTINE (6) Hyperlipidemia Code(s): E78.5 - HYPERLIPIDEMIA, UNSPECIFIED (7) Hypertension Code(s): I10 - ESSENTIAL (PRIMARY) HYPERTENSION Assessment/Plan 1. Abdominal pain, etiology to be determined. currently with cholelithiasis 2. HTN 3. Hypercholesterolemia 4. ? PAF currently in sinus rhythm 5. Pre-diabetes mellitus 6. History of PUD and history of gastric or instestinal/colon mass PLAN: 1. Currently not on any cardiac medications. Although medical record states PAF , patient is not on anticoagulation or any cardiac medications at home except for Atorvastatin for hypercholesterolemia. No need to start at this time 2. Echocardiography to assess LV/RV and valvular function 3. Consider further GI evaluation Sumanth Aguila MD
--- NOTE | 2019-07-28 16:32 | PN ---
Progress Note (short form) - Note Progress Note: Surgery HIDA scan + Will plan for laparoscopic cholecystectomy with Dr Christina tomorrow 07/29/19. -NPO after midnight -medical optimization -GI/DVT prophylaxis plan discussed with Dr Christina. Problem List - Problems (1) Abdominal pain Code(s): R10.9 - UNSPECIFIED ABDOMINAL PAIN Qualifiers: Abdominal location: generalized Qualified Code(s): R10.84 - Generalized abdominal pain
[2019-07-28] MEDS ORDERED: DEXTROSE 5%-WATER - 50 ML IVPB ONE (17:25)
[2019-07-28] MEDS ORDERED: PIPERACILLIN/TAZOBACTAM 3.375 GM VIAL IVPB ONE (17:25)
[2019-07-28] MEDS: PIPERACILLIN/TAZOB 3.375 GM 3.375 GM in DEXTROSE 5%-WATER - 50 ML IVPB SCH (17:28)
[2019-07-28] MEDS ORDERED: PIPERACILLIN/TAZOB 3.375 GM 3.375 GM in DEXTROSE 5%-WATER - 50 ML IVPB SCH (18:00)
--- NOTE | 2019-07-28 18:51 | PN ---
Progress Note, Physician - Current Medication List Current Medications: Active Medications Sodium Chloride (Normal Saline -) 1,000 mls @ 75 mls/hr IV ASDIR JOSE Last Admin: 07/27/19 20:28 Dose: 75 mls/hr Piperacillin Sod/Tazobactam (Sod 3.375 gm/ Dextrose) 50 mls @ 100 mls/hr IVPB Q8H-IV JOSE; Protocol Piperacillin Sod/Tazobactam (Sod 3.375 gm/ Dextrose) 50 mls @ 100 mls/hr IVPB Q8H-IV JOSE; Protocol Stop: 07/29/19 10:29 Last Admin: 07/28/19 17:28 Dose: 100 mls/hr Morphine Sulfate (Morphine Sulfate) 2 mg IVPUSH Q4H PRN PRN Reason: PAIN LEVEL 4 - 6 Last Admin: 07/28/19 09:45 Dose: 2 mg Pantoprazole Sodium (Protonix Iv) 40 mg IVPUSH DAILY JOSE Last Admin: 07/28/19 09:45 Dose: 40 mg - Objective Vital Signs: Vital Signs Temperature 97.8 F 07/28/19 10:00 Pulse Rate 50 L 07/28/19 10:00 Respiratory Rate 20 07/28/19 10:00 Blood Pressure 128/60 07/28/19 10:00 O2 Sat by Pulse Oximetry (%) 100 07/28/19 02:00 Constitutional: Yes: No Distress HENT: Yes: Atraumatic Neck: Yes: Supple Cardiovascular: Yes: Regular Rate and Rhythm Respiratory: Yes: CTA Bilaterally Gastrointestinal: Yes: Normal Bowel Sounds, Tenderness, Rebound Extremities: Yes: WNL Edema: No Peripheral Pulses WNL: Yes Neurological: Yes: Alert, Oriented Labs: CBC, BMP 07/27/19 12:15 07/27/19 12:15 Problem List - Problems (1) Abdominal pain Assessment/Plan: npo prn painmeds ivf FOR OR TOMORROW Code(s): R10.9 - UNSPECIFIED ABDOMINAL PAIN Qualifiers: Abdominal location: generalized Qualified Code(s): R10.84 - Generalized abdominal pain (2) Cholelithiasis Code(s): K80.20 - CALCULUS OF GALLBLADDER W/O CHOLECYSTITIS W/O OBSTRUCTION Qualifiers: Cholelithiasis location: gallbladder Cholecystitis presence: without cholecystitis Biliary obstruction: without biliary obstruction Qualified Code(s): K80.20 - Calculus of gallbladder without cholecystitis without obstruction (3) History of colon cancer Code(s): Z85.038 - PERSONAL HISTORY OF MALIGNANT NEOPLASM OF LARGE INTESTINE (4) Hyperlipidemia Code(s): E78.5 - HYPERLIPIDEMIA, UNSPECIFIED (5) Hypertension Code(s): I10 - ESSENTIAL (PRIMARY) HYPERTENSION
[2019-07-28] MEDS: SODIUM CHLORIDE 1,000 ML IV SCH (20:49)
[2019-07-29] MEDS ORDERED: DEXTROSE 5%-WATER - 50 ML IVPB ONE ×2 (01:38→09:31)
[2019-07-29] MEDS ORDERED: PIPERACILLIN/TAZOBACTAM 3.375 GM VIAL IVPB ONE ×2 (01:38→09:31)
[2019-07-29] MEDS: PIPERACILLIN/TAZOB 3.375 GM 3.375 GM in DEXTROSE 5%-WATER - 50 ML IVPB SCH ×2 (01:47→09:40)
[2019-07-29] MEDS: MORPHINE SULFATE 2 MG/ML VIAL IVPUSH PRN ×2 (05:49→10:35)
[2019-07-29] MEDS: SODIUM CHLORIDE 1,000 ML IV SCH (05:50)
[2019-07-29 09:13] VITALS: TEMP 97.9
[2019-07-29 09:40] LABS: BASO % 0.5 % (0-2.0); EOS % 1.2 % (0-4.5); HEMATOCRIT 36.8 % (32.4-45.2); HEMOGLOBIN 12.7 GM/dL (10.7-15.3); LYMPH % 23.8 % (8-40); MCHC 34.5 g/dl (32.0-36.0); MEAN CELL VOLUME 86.9 fl (80-96); MONO % 11.4 % (3.8-10.2); NEUT % 63.1 % (42.8-82.8); PLATELET COUNT 254 K/MM3 (134-434); RBC 4.23 M/mm3 (3.60-5.2); RDW 13.1 % (11.6-15.6); WHITE BLOOD COUNT 8.4 K/mm3 (4.0-10.0)
[2019-07-29] MEDS ORDERED: ONDANSETRON 4 MG/2 ML VIAL IVPUSH PRN (09:58)
[2019-07-29] MEDS ORDERED: fentaNYL CITRATE 250 MCG/5 ML VIAL ONE (10:04)
[2019-07-29] MEDS ORDERED: LIDOCAINE HCL/PF 2% SDV 5ML VIAL ONE (10:04)
[2019-07-29] MEDS ORDERED: ROCURONIUM BROMIDE 50 MG/5 ML SYRINGE ONE (10:05)
[2019-07-29] MEDS ORDERED: PROPOFOL 20 ML ONE (10:05)
[2019-07-29 10:16] LABS: ALBUMIN 3.7 g/dl (3.4-5.0); BILIRUBIN,TOTAL 1.2 mg/dL (0.2-1); CREATININE 0.9 mg/dL (0.55-1.3); POTASSIUM 3.6 mmol/L (3.5-5.1); TOT PROT 7.6 g/dl (6.4-8.2)
[2019-07-29] MEDS ORDERED: ACETAMINOPHEN 1000 MG/100 ML VIAL (NON FORMULARY) IVPB ONE ×2 (10:30→16:30)
--- NOTE | 2019-07-29 10:46 | PN ---
Progress Note (short form) - Note Progress Note: Attending Surgeon The patient was scheduled for lap hemanth possible open this AM; I spoke w/her granddaughter Racheal Vo who is her HCP who told me that her " grandmother was not mentally ready for surgery at this time "; I d/w her granddaughter Racheal the risks and benefits of surgery as definitive tx. for acute cholecystitis and the possible alternatives to surgery and how w/o surgery at this time medical management could be pursued h/e that it would not be definitive in nature and most likely temporizing; she understood this and nevertheless would not consent to her grandmother having surgery at this time; in the interim would recommend continuing IVF/IVABS and resumption of PO intake as dictated by physical exam. 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 Ezekiel Christina MD FACS
[2019-07-29] MEDS: PANTOPRAZOLE SODIUM 40 MG VIAL IVPUSH SCH (10:47)
--- NOTE | 2019-07-29 12:34 | PN ---
Progress Note, Physician History of Present Illness: DAUGHTER REFUSED SURGERY - Current Medication List Current Medications: Active Medications Fentanyl (Sublimaze Injection -) 50 mcg IVPUSH [id number] PRN PRN Reason: PAIN-PACU ORDER X 4 DOSES ONLY Sodium Chloride (Normal Saline -) 1,000 mls @ 75 mls/hr IV ASDIR JOSE Last Admin: 07/29/19 05:50 Dose: 75 mls/hr Piperacillin Sod/Tazobactam (Sod 3.375 gm/ Dextrose) 50 mls @ 100 mls/hr IVPB Q8H-IV JOSE; Protocol Morphine Sulfate (Morphine Sulfate) 2 mg IVPUSH Q4H PRN PRN Reason: PAIN LEVEL 4 - 6 Last Admin: 07/29/19 10:35 Dose: 2 mg Ondansetron HCl (Zofran Injection) 4 mg IVPUSH Q6H PRN PRN Reason: NAUSEA AND/OR VOMITING Pantoprazole Sodium (Protonix Iv) 40 mg IVPUSH DAILY [facility] Last Admin: 07/29/19 10:47 Dose: 40 mg - Objective Vital Signs: Vital Signs Temperature 97.9 F 07/29/19 09:12 Pulse Rate 54 L 07/29/19 09:12 Respiratory Rate 07/29/19 09:12 Blood Pressure 153/77 07/29/19 09:12 O2 Sat by Pulse Oximetry (%) 99 07/28/19 21:00 Constitutional: Yes: No Distress HENT: Yes: Atraumatic Neck: Yes: Supple Cardiovascular: Yes: Regular Rate and Rhythm Respiratory: Yes: CTA Bilaterally Gastrointestinal: Yes: Normal Bowel Sounds Extremities: Yes: WNL Edema: No Peripheral Pulses WNL: Yes Neurological: Yes: Alert, Oriented Labs: CBC, BMP 07/29/19 08:26 07/29/19 08:26 Problem List - Problems (1) Abdominal pain Assessment/Plan: EATING, TOLERATING DIET REFUSED SURGERY DC HOME IN AM Code(s): R10.9 - UNSPECIFIED ABDOMINAL PAIN Qualifiers: Abdominal location: generalized Qualified Code(s): R10.84 - Generalized abdominal pain (2) Cholelithiasis Code(s): K80.20 - CALCULUS OF GALLBLADDER W/O CHOLECYSTITIS W/O OBSTRUCTION Qualifiers: Cholelithiasis location: gallbladder Cholecystitis presence: without cholecystitis Biliary obstruction: without biliary obstruction Qualified Code(s): K80.20 - Calculus of gallbladder without cholecystitis without obstruction (3) History of colon cancer Code(s): Z85.038 - PERSONAL HISTORY OF MALIGNANT NEOPLASM OF LARGE INTESTINE (4) Hyperlipidemia Code(s): E78.5 - HYPERLIPIDEMIA, UNSPECIFIED (5) Hypertension Code(s): I10 - ESSENTIAL (PRIMARY) HYPERTENSION
[2019-07-29 15:05] VITALS: BP 141/81; PULSE 68
== END 2019-07-29 20:53 | disposition home or self-care (01) | DRG 446 ==
LOC: JER 10:35 → JERBED 17:35 → J6S 07-28 01:43
PROVIDERS: ADMIT Internal Medicine; ATTEND Internal Medicine
DX: K80.20 Calculus of gallbladder without cholecystitis without obstruction (principal); Z85.038 Personal history of other malignant neoplasm of large intestine; E78.5 Hyperlipidemia, unspecified; I10 Essential (primary) hypertension; R10.84 Generalized abdominal pain; K76.0 Fatty (change of) liver, not elsewhere classified; I48.0 Paroxysmal atrial fibrillation
CPT/HCPCS: 36415; 71046-TC-FY; 74177-TC; 76705-TC; 76775-TC; 78226-TC; 80053; 81003; 82550; 83605; 83690; 84484; 85025; 87086; 93005; 93010; 99285-25; A9537; J0131; J7030; Q9967

== ENCOUNTER 2021-01-16 14:05 | Emergency (ER) | payer OTHER ==
[2021-01-16 15:37] VITALS: BMI 28.1
[2021-01-16] MEDS ORDERED: FAMOTIDINE 10 MG TABLET PO ONE (15:44)
[2021-01-16] MEDS ORDERED: MAG HYDROX/AL HYDROX/SIMETH 30 ML UNIT-DOSE CUP PO ONE (15:44)
[2021-01-16] MEDS ORDERED: FAMOTIDINE 10 MG TABLET ONE (15:48)
[2021-01-16] MEDS ORDERED: MAG HYDROX/AL HYDROX/SIMETH 30 ML UNIT-DOSE CUP ONE (15:49)
[2021-01-16] MEDS ORDERED: ASPIRIN 81 MG CHEWABLE TABLETS PO ONE (15:56)
[2021-01-16] MEDS ORDERED: ASPIRIN 81 MG CHEWABLE TABLETS ONE (16:08)
[2021-01-16 16:43] LABS: BASO % 0.6 % (0-2.0); EOS % 1.9 % (0-4.5); HEMATOCRIT 36.5 % (32.4-45.2); HEMOGLOBIN 12.3 GM/dL (10.7-15.3); MCH 29.7 pg (25.7-33.7); MCHC 33.6 g/dl (32.0-36.0); MEAN CELL VOLUME 88.3 fl (80-96); MEAN PLT VOLUME 8.3 fl (7.5-11.1); MONO % 10.3 % (3.8-10.2); NEUT % 58.2 % (42.8-82.8); PLATELET COUNT 204 10^3/uL (134-434); RBC 4.13 M/mm3 (3.60-5.2); RDW 13.8 % (11.6-15.6); WHITE BLOOD COUNT 7.9 K/mm3 (4.0-10.0)
[2021-01-16 16:56] LABS: CHLORIDE 106 mmol/L (98-107); SODIUM 142 mmol/L (136-145)
[2021-01-16 16:58] LABS: ALBUMIN 3.6 g/dl (3.4-5.0); ANION GAP 7 MMOL/L (8-16); BLOOD UREA NITROGEN 18.2 mg/dL (7-18); CALCIUM 8.6 mg/dL (8.5-10.1); CO2 29 mmol/L (21-32); GLUCOSE,RANDOM 100 mg/dL (74-106)
[2021-01-16 17:01] LABS: SGPT/ALT 28 U/L (13-61)
[2021-01-16 17:02] LABS: SGOT/AST 18 U/L (15-37)
[2021-01-16 17:03] LABS: BILIRUBIN,TOTAL 0.4 mg/dL (0.2-1); TOT PROT 6.8 g/dl (6.4-8.2)
[2021-01-16 17:04] LABS: ALK PHOS 98 U/L (45-117)
[2021-01-16 20:39] VITALS: BP 146/72; PULSE 88; TEMP 98.5
== END 2021-01-16 20:45 | disposition home or self-care (01) ==
LOC: JER 14:05
DX: R07.9 Chest pain, unspecified (principal)
CPT/HCPCS: 36415; 71045-TC-FY; 80053; 82550; 84484; 85025; 93005; 93010; 99284-25

== ENCOUNTER 2021-01-25 21:02 | Emergency (ER) | payer OTHER ==
[2021-01-25 21:14] VITALS: TEMP 98.9; BMI 24.7
[2021-01-25] MEDS ORDERED: amLODIPine BESYLATE 10 MG TABLET (FP) PO ONE (22:23)
[2021-01-25] MEDS ORDERED: amLODIPine BESYLATE 5 MG TABLET (FP) ONE (22:30)
[2021-01-25] MEDS ORDERED: METOPROLOL TARTRATE 50 MG TABLET (FP) PO ONE (22:55)
[2021-01-25] MEDS ORDERED: METOPROLOL TARTRATE 50 MG TABLET (FP) ONE (22:57)
[2021-01-25 23:05] LABS: BASO % 1.3 % (0-2.0); EOS % 1.7 % (0-4.5); HEMATOCRIT 37.4 % (32.4-45.2); LYMPH % 32.8 % (8-40); MCH 30.4 pg (25.7-33.7); MCHC 34.7 g/dl (32.0-36.0); MEAN CELL VOLUME 87.8 fl (80-96); MEAN PLT VOLUME 8.2 fl (7.5-11.1); MONO % 11.3 % (3.8-10.2); NEUT % 52.9 % (42.8-82.8); PLATELET COUNT 214 10^3/uL (134-434); RBC 4.26 M/mm3 (3.60-5.2); RDW 14.2 % (11.6-15.6); WHITE BLOOD COUNT 9.2 K/mm3 (4.0-10.0)
[2021-01-25 23:24] LABS: CHLORIDE 105 mmol/L (98-107); SODIUM 139 mmol/L (136-145)
[2021-01-25 23:27] LABS: ANION GAP 7 MMOL/L (8-16); BLOOD UREA NITROGEN 20.6 mg/dL (7-18); CALCIUM 8.7 mg/dL (8.5-10.1); CO2 27 mmol/L (21-32); GLUCOSE,RANDOM 99 mg/dL (74-106); MAGNESIUM 2.3 mg/dL (1.8-2.4)
[2021-01-25 23:30] LABS: SGPT/ALT 33 U/L (13-61)
[2021-01-25 23:31] LABS: CREATININE 0.9 mg/dL (0.55-1.3); SGOT/AST 28 U/L (15-37)
[2021-01-25 23:32] LABS: BILIRUBIN,TOTAL 0.9 mg/dL (0.2-1); TOT PROT 7.5 g/dl (6.4-8.2)
[2021-01-25 23:33] LABS: ALK PHOS 107 U/L (45-117)
[2021-01-26 01:27] VITALS: BP 168/88; PULSE 60
== END 2021-01-26 02:11 | disposition home or self-care (01) ==
LOC: JER 21:02
DX: I48.0 Paroxysmal atrial fibrillation (principal); I10 Essential (primary) hypertension
CPT/HCPCS: 36415; 80053; 83735; 84484; 85025; 93005; 93010; 99283-25